=== PATIENT | male | born 1965 | race Caucasian/White ===

== ENCOUNTER 2017-01-25 22:51 | Emergency (ER) | payer OTHER ==
[~2017-01-25] VITALS: Ht 165.1 cm; Wt 90.7 kg
[~2017-01-25 22:51] MED LIST: CITALOPRAM20 MG PO; DOCUPRENE100 MG PO; FOLATE1 MG PO; MAPAP325 MG PO; METHOCARBAMOL750 M1 PO; PANTOPRAZOLE SO40 MG PO; ZOFRAN ODT4 MG SL
[2017-01-25 22:57] VITALS: BP 123/90
--- NOTE | 2017-01-26 00:58 | NUR ---
BIB WHEELCHAIR TO ER BED 6 FROM ER [facility]
--- NOTE | 2017-01-26 00:59 | NUR ---
BIBA FOR ETOH . PT DENIES N/V/D; SKIN IS PINK/WARM/DRY; AAOX4 WITH EVEN AND STEADY GAIT; LUNGS CLEAR BL; HR EVEN AND REGULAR; PT DENIES ANY FEVER, CP, SOB, OR COUGH AT THIS TIME; PATIENT STATES PAIN OF 0/10 AT THIS TIME; VSS; PATIENT POSITIONED FOR COMFORT; HOB ELEVATED; BEDRAILS UP X2; BED DOWN. ER MD MADE AWARE OF PT STATUS.
--- NOTE | 2017-01-26 01:25 | NUR ---
PT SLEEPING, NO C/O PAIN AT THIS TIME
--- NOTE | 2017-01-26 01:40 | NUR ---
DR MCNAMARA AT BEDSIDE
[2017-01-26] MEDS ORDERED: KETOROLAC 60 MG/2 ML VIAL IM ONE (01:45)
[2017-01-26 02:16] VITALS: BP 140/83
[2017-05-25] MEDS ORDERED: NORCO 325 MG-51 TAB PO (10:07)
== END 2017-01-26 02:16 | disposition home or self-care (01) ==
LOC: MED 22:51
DX: M25.561 Pain in right knee (principal); K21.9 Gastro-esophageal reflux disease without esophagitis; F10.10 Alcohol abuse, uncomplicated; Z98.890 Other specified postprocedural states
CPT/HCPCS: 96372; 99283; J1885

== ENCOUNTER 2017-05-24 15:33 | Observation (INO) | payer OTHER ==
[~2017-05-24] VITALS: Ht 162.6 cm; Wt 112.5 kg
[~2017-05-24 15:33] MED LIST changes: +ACET-7568 PO; -CITALOPRAM20 MG PO; +DOCU100T17 PO; -DOCUPRENE100 MG PO; -FOLATE1 MG PO; -MAPAP325 MG PO; +METH750T9 PO; -METHOCARBAMOL750 M1 PO; -PANTOPRAZOLE SO40 MG PO; -ZOFRAN ODT4 MG SL
--- NOTE | 2017-05-24 15:33 | NUR ---
Patient FANTA RODRIGUES, triaged by RN and transferred to ED lobby via wheelchair to wait for an available bed.
[2017-05-24 15:35] VITALS: BP 118/82
--- NOTE | 2017-05-24 17:56 | NUR ---
Patient transferred to bed 6 via wheelchair by tech. RN evaluating patient at bedside.
--- NOTE | 2017-05-24 18:10 | NUR ---
Patient being evaluated by Dr. Amaro at bedside.
[2017-05-24] MEDS ORDERED: MULTIVITAMIN-12 10 ML, THIAMINE 100 MG, MAGNESIUM SULFATE 50% 2,000 MG, FOLIC ACID 5 MG... IV ONE ×5 (18:11)
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
[2017-05-24] MEDS ORDERED: MAGNESIUM SULFATE 50% 1000 MG/2 ML VIAL IV ONE (18:28)
[2017-05-24] MEDS ORDERED: MULTIVITAMIN-12 10 ML VIAL IV ONE (18:28)
[2017-05-24] MEDS ORDERED: THIAMINE 200 MG/2 ML VIAL ONE (18:28)
[2017-05-24] MEDS ORDERED: FOLIC ACID 5 MG/ML SYR ONE (18:28)
[2017-05-24 18:35] LABS: BASOPHILS # (AUTO) 0.2 K/uL (0.00-0.22); BASOPHILS % (AUTO) 2.6 % (0.0-2.0); EOSINOPHILS # (AUTO) 0.2 K/uL (0-0.4); EOSINOPHILS % (AUTO) 1.9 % (0.0-4.0); LYMPHOCYTES # (AUTO) 2.2 K/uL (2.0-11.5); LYMPHOCYTES % (AUTO) 25.6 % (20.5-51.1); MEAN CORPUSCULAR HEMOGLOBIN 33 pg (27-31); MEAN CORPUSCULAR HGB CONC 33 g/dL (33-37); MEAN CORPUSCULAR VOLUME 100 fL (80-94); MONOCYTES # (AUTO) 0.6 K/uL (0.8-1.0); NEUTROPHILS # (AUTO) 5.3 K/uL (1.8-7.7); NEUTROPHILS % (AUTO) 62.9 % (42.2-75.2); PLATELET COUNT (AUTO) 129 K/uL (140-450); RED CELL DISTRIBUTION WIDTH 12.3 % (11.6-13.7); WHITE BLOOD COUNT (AUTO) 8.5 K/uL (4.8-10.8)
[2017-05-24 18:45] LABS: ANION GAP 17.7 (8-16); CARBON DIOXIDE 22.1 mmol/L (21-32); POTASSIUM 3.8 mmol/L (3.5-5.1)
[2017-05-24 18:57] LABS: ALBUMIN 3.8 g/dL (3.4-5.0); TOTAL BILIRUBIN 0.6 mg/dL (0.0-1.0)
--- NOTE | 2017-05-24 19:09 | NUR ---
Pt report given to Leonila PADGETT. Transfer of care at this time.
--- NOTE | 2017-05-24 19:13 | NUR ---
URINAL GIVEN AWARE NEED URINE, PT SAID OK I WILL TRY, IVF ONGOING WELL TOLERATED, NO SOB NOTED STILL COMPLAINING OF BACK PAIN.
--- NOTE | 2017-05-24 19:22 | NUR ---
RELAYED TO DR. DUNBAR RESULT OF URINE DIPSTICK AND MADE AWARE PT STILL COMPLAINING OF BACK PAIN,
--- NOTE | 2017-05-24 19:50 | NUR ---
INFORMED DR. MCKEON O2 SAT 88, PT JINNY MCKINLEY MD OK TO PUT O2 AT 2L/NC, O2 SAT WENT TO 94%
[2017-05-24 19:51] LABS: BARBITURATE, URINE NEG. ng/ml (NEG <=200); BENZODIAZEPINE, URINE NEG. ng/mL (NEG <=200); CANNABINOID, URINE POS. ng/mL (NEG <=50); COCAINE, URINE NEG. ng/mL (NEG <=300); OPIATE, URINE NEG. ng/mL (NEG <=2000); PHENCYCLIDINE SCREEN,URINE NEG. ng/mL (NEG <=25)
[2017-05-24] MEDS ORDERED: NACL 0.9% 1,000 ML IV ONE (20:05)
--- NOTE | 2017-05-24 20:18 | NUR ---
PT WENT TO XRAY VIA TORRI
--- NOTE | 2017-05-24 20:29 | NUR ---
TALKED TO DR. MCKEON BANANA BAG STILL ONGOING, SAID RUN THE BANANA BAG @ 500ML , PT STILL IN XRAY AT THIS TIME
--- NOTE | 2017-05-24 20:47 | NUR ---
Patient back from XRAY via [facility].
--- NOTE | 2017-05-24 20:47 | NUR ---
PT BACK FROM XRAY VIA TORRI PT VERBALIZED CAN I HAVE SOMETHING FOR PAIN, DR. MCKEON AWARE Addendum: 05/24/17 at 2049 by CJV PER MD HERRING TO HOLD BANANA BAG AND LET THE BOLUS NS RUN
[2017-05-24] MEDS ORDERED: KETOROLAC 30 MG/ML VIAL IVP ONE (21:00)
--- NOTE | 2017-05-24 21:10 | NUR ---
DR. MCKEON AT BEDSIDE
[2017-05-24] MEDS ORDERED: HYDROmorphone 1 MG/ML AMP IVP ONE (21:15)
[2017-05-24] MEDS ORDERED: NACL 0.9% 1,000 ML IV SCH (21:24)
--- NOTE | 2017-05-24 21:24 | NUR ---
IV FLUIDS FINISHED, WILL CONTINUE TO MONITOR. CALL LIGHT WITHIN REACH. SAFETY CHECKS IN PLACE.
[2017-05-24] MEDS ORDERED: HYDROcodone/APAP 5/325 MG 1 TAB TAB PO PRN (21:25)
[2017-05-24] MEDS ORDERED: ONDANSETRON 4 MG/2 ML VIAL IVP PRN (21:25)
[2017-05-24] MEDS ORDERED: ALBUTEROL 0.083% 2.5 MG/3 ML NEBU IH PRN (21:25)
[2017-05-24] MEDS ORDERED: MIDAZOLAM 2 MG/2 ML VIAL IVP ONE (21:35)
[2017-05-24] MEDS ORDERED: DIAZEPAM 5 MG TAB PO ONE (21:40)
--- NOTE | 2017-05-24 21:42 | NUR ---
CALL PLACE TO TELE FOR REPORT SPOKE TO GABRIELA, WILL CALL ME BACK
[2017-05-24] MEDS ORDERED: DIAZEPAM 5 MG TAB ONE (21:48)
--- NOTE | 2017-05-24 22:07 | NUR ---
Pt report given to GABRIELA. Transfer of care at this time.
--- NOTE | 2017-05-24 22:10 | NUR ---
PT CAME FROM ER VIA GURNEY, TRANSPORTED TO BED RIGHT NEXT TO THE GURNEY. PT IS AOX4, ABLE TO MAKE NEEDS KNOWN. HAS A LEFT HAND 20 G WITH A MULTIVITAMIN INFUSED NACL RUNNING AT 250 ML/HR, INTACT AND PATENT. SKIN IS INTACT. WITH AN O2 VIA NC RUNNING AT 2 L, WELL TOLERATED BY PATIENT. VITAL SIGNS TAKEN, AND IS STABLE. ORIENTED PT TO THE UNIT, NEEDS REINFORCEMENT. WILL CONTINUE TO MONITOR. ALL NEEDS ATTENDED. CALL LIGHT WITHIN REACH. SAFETY CHECKS IN PLACE.
--- NOTE | 2017-05-24 22:11 | NUR ---
Pt report given to GABRIELA. Transfer of care at this time. PT AAO, NO DISTRESS NOTED. CLAIMED GOODBYE EVERYBODY
[2017-05-24 22:12] VITALS: BP 132/76
--- NOTE | 2017-05-24 22:30 | NUR ---
PT WAS ABLE TO ANSWER THE ADMISSION QUESTIONS WHEN ASKED.
[2017-05-24] MEDS ORDERED: LORazepam 2 MG/ML VIAL IVP PRN (23:10)
--- NOTE | 2017-05-24 23:15 | NUR ---
PAGED DR. SOUZA RELATED, AWAITING CALL BACK.
--- NOTE | 2017-05-24 23:20 | NUR ---
DR. SOUZA CALLED BACK, INFORMED HIM TO VOICE CONCERN ABOUT WORRY ABOUT PT ALCOHOL WITHDRAWAL AND THE POSSIBILITY OF SEIZURE. DR. SOUZA GAVE AN ORDER OF ATIVAN 2 MG IV Q1H FOR SEIZURE PRN AND LIBIRUM 10 MG TID PO TO START RIGHT NOW. WILL CARRY OUT ORDER.
[2017-05-25] VITALS: BP 126/77
--- NOTE | 2017-05-25 01:30 | NUR ---
MULTIVITAMIN INFUSED WITH NORMAL SALINE FINISHED. HANGED NORMAL SALINE RUNNING AT 75 ML/HR.
--- NOTE | 2017-05-25 02:04 | NUR ---
MADE ROUNDS, PT IS SEEN ASLEEP. NO S/S OF DISTRESS. NO COMPLAINTS OF PAIN. WILL CONTINUE TO MONITOR. ALL NEEDS ATTENDED. CALL LIGHT WITHIN REACH. SAFETY CHECKS IN PLACE.
--- NOTE | 2017-05-25 04:00 | NUR ---
VS STABLE, COMPLAINED OF PAIN. WILL MEDICATE WITH MORPHINE. WILL CONTINUE TO MONITOR FOR ANY CHANGES. Addendum: 05/25/17 at 0516 by Jojo Magdaleno RN WRONG TIME
[2017-05-25 04:24] VITALS: BP 125/78
[2017-05-25] MEDS: MORPHINE SULFATE 4 MG/ML SYR IVP PRN ×2 (04:28→08:25)
--- NOTE | 2017-05-25 04:30 | NUR ---
PT SAID HE COMPLAINED OF PAIN, CHECKED VITALS, ADMINISTERED MORPHINE. WAS ABLE TO AMBULATE TO THE RESTROOM.
--- NOTE | 2017-05-25 05:00 | NUR ---
CHECKED ON THE PATIENT TO SEE IF THE PAIN HAS SUBSIDED. SAID THAT THE MORPHINE HELPED. WILL CONTINUE TO MONITOR. ALL NEEDS ATTENDED. CALL LIGHT WITHIN REACH. SAFETY CHECKS IN PLACE.
--- NOTE | 2017-05-25 06:21 | NUR ---
PATIENT WAS COMPLAINING OF SHAKINESS, GAVE ATIVAN PRN TO PREVENT SEIZURE ACTIVITY.
[2017-05-25 06:27] LABS: BASOPHILS % (AUTO) 0.7 % (0.0-2.0); EOSINOPHILS # (AUTO) 0.1 K/uL (0-0.4); EOSINOPHILS % (AUTO) 2.1 % (0.0-4.0); HEMATOCRIT 38.9 % (36-52); HEMOGLOBIN 13.2 g/dL (12.0-18.0); LYMPHOCYTES # (AUTO) 0.8 K/uL (2.0-11.5); LYMPHOCYTES % (AUTO) 16.2 % (20.5-51.1); MEAN CORPUSCULAR HEMOGLOBIN 34 pg (27-31); MEAN CORPUSCULAR HGB CONC 34 g/dL (33-37); MEAN CORPUSCULAR VOLUME 98 fL (80-94); MONOCYTES # (AUTO) 0.4 K/uL (0.8-1.0); MONOCYTES % (AUTO) 8.5 % (1.7-9.3); NEUTROPHILS # (AUTO) 3.9 K/uL (1.8-7.7); NEUTROPHILS % (AUTO) 72.5 % (42.2-75.2); RED BLOOD CELL COUNT(AUTO) 3.95 MIL/uL (4.20-6.10); RED CELL DISTRIBUTION WIDTH 12.2 % (11.6-13.7)
[2017-05-25 06:56] LABS: MAGNESIUM 2.3 mg/dL (1.8-2.4); PHOSPHORUS 2.9 mg/dL (2.5-4.9)
[2017-05-25 07:12] LABS: ANION GAP 11.5 (8-16); CARBON DIOXIDE 25.9 mmol/L (21-32); CREATININE 0.8 mg/dL (0.7-1.3); POTASSIUM 4.4 mmol/L (3.5-5.1)
--- NOTE | 2017-05-25 07:26 | NUR ---
ENDORSED TO AM SHIFT NURSE FOR CONTINUITY OF CARE, WILL CONTINUE TO MONITOR FOR ANY CHANGES.
[2017-05-25 07:29] LABS: PLATELET COUNT (AUTO) 100 K/uL (140-450); WHITE BLOOD COUNT (AUTO) 5.2 K/uL (4.8-10.8)
--- NOTE | 2017-05-25 07:30 | NUR ---
REPORT RECEIVED FROM NUT TAPPER, CARE ASSUMED AT THIS TIME, PT AWAKE ALERT, RESTING COMFORTABLY, RESP EVEN UNLABORED IN NAD, INITIAL ASSESSMENT DONE, PT REQUESTS PAIN MED FOR RIGHT LEG PAIN AND BACK PAIN, WILL MEDICATE WHEN PRN DUE, PLAN OF CARE DISCUSSED, DENIES ANY IMMEDIATE NEEDS, CALL SARAVIA WITHIN REACH, WILL CONTINUE TO TO MONITOR.
[2017-05-25 08:00] VITALS: BP 150/85
[2017-05-25] MEDS ORDERED: HYDROcodone/APAP 5/325 MG 1 TAB TAB PO PRN ×2 (10:05)
[2017-05-25] MEDS ORDERED: ACET-2869 PO (10:07)
--- NOTE | 2017-05-25 11:57 | NUR ---
PT TAKEN TO RADIOLOGY FOR XRAY IN WHEELCHAIR
--- NOTE | 2017-05-25 14:40 | NUR ---
DISCHARGE INSTRUCTION AND RX GIVEN AND EXPLAINED TO PT, PT VERBALIZED FULL UNDERSTANDING, PT UP WALKING AROUND WITH STEADY GAIT, IV DC'D, CATH TIP INTACT, BLEEDING CONTROLLED, DC HOME NOW WITH PARENTS. ESCORTED OUT TO FRONT LOBBY.
== END 2017-05-25 14:40 | disposition home or self-care (01) ==
LOC: MED 15:33 → MTU 21:27
PROVIDERS: ADMIT Hospitalist; ATTEND Hospitalist
DX: M54.5 Low back pain (principal); G89.29 Other chronic pain; F10.129 Alcohol abuse with intoxication, unspecified; K21.9 Gastro-esophageal reflux disease without esophagitis; M79.604 Pain in right leg
CPT/HCPCS: 36415; 71010; 72110; 73502; 73562; 80048; 80053; 80305; 83735; 84100; 85025; 85379; 87081; 93005; 94640; 94760; 96365; 96366; 96375; 96376; 97116; 97140; 97163; 99285; A9153; G0378; G0482; J1170; J1885; J2060; J2270; J3411; J3475; J3490; J7030; J7613; Q0092

== ENCOUNTER 2017-09-16 18:25 | Inpatient (IN) | payer OTHER ==
[~2017-09-16] VITALS: Ht 165.1 cm; Wt 86.2 kg
[~2017-09-16 18:25] MED LIST changes: +ACET-2869 PO; -ACET-7568 PO; -DOCU100T17 PO; -METH750T9 PO
[2017-09-16 18:37] VITALS: BP 132/87
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
--- NOTE | 2017-09-16 19:19 | NUR ---
Pt report given to MAKAYLA; RN INTENSIVE CARE UNIT. Transfer of care at this time.
--- NOTE | 2017-09-16 19:30 | NUR ---
ASSUMED CARE OF PT. pT PACING IN LOVE. SHOUTING HE WANTS TO KILL HIMSELF. HE JUST GOT OUT OF [facility] AND ITS MY BITHDAY. I ESCORTED PT BACK TO HIS BED AND PUT RAILS UP. SEE OBSERVATION RECORD..
--- NOTE | 2017-09-16 19:50 | NUR ---
Patient being evaluated by Dr. Martino at bedside.
[2017-09-16] MEDS ORDERED: diphenhydrAMINE 50 MG/ML VIAL IM ONE (20:10)
[2017-09-16] MEDS ORDERED: LORazepam 2 MG/ML VIAL IM ONE (20:10)
--- NOTE | 2017-09-16 20:20 | NUR ---
Security at bedside for belongings check.
[2017-09-16 20:35] LABS: BASOPHILS # (AUTO) 0.1 K/uL (0.00-0.22); BASOPHILS % (AUTO) 2.1 % (0.0-2.0); EOSINOPHILS # (AUTO) 0.1 K/uL (0-0.4); EOSINOPHILS % (AUTO) 1.5 % (0.0-4.0); HEMATOCRIT 40.3 % (36-52); HEMOGLOBIN 13.7 g/dL (12.0-18.0); LYMPHOCYTES # (AUTO) 1.1 K/uL (2.0-11.5); LYMPHOCYTES % (AUTO) 20.8 % (20.5-51.1); MEAN CORPUSCULAR HEMOGLOBIN 34 pg (27-31); MEAN CORPUSCULAR HGB CONC 34 g/dL (33-37); MEAN CORPUSCULAR VOLUME 98 fL (80-94); MONOCYTES # (AUTO) 0.4 K/uL (0.8-1.0); MONOCYTES % (AUTO) 8.1 % (1.7-9.3); NEUTROPHILS # (AUTO) 3.7 K/uL (1.8-7.7); NEUTROPHILS % (AUTO) 67.5 % (42.2-75.2); PLATELET COUNT (AUTO) 84 K/uL (140-450); WHITE BLOOD COUNT (AUTO) 5.4 K/uL (4.8-10.8)
[2017-09-16 20:47] LABS: ALBUMIN 3.9 g/dL (3.4-5.0); ANION GAP 19.8 (8-16); ASPARTATE AMINOTRANSFERASE 128 U/L (15-37); CARBON DIOXIDE 23.8 mmol/L (21-32); CHLORIDE 101 mmol/L (98-107); CREATININE 0.8 mg/dL (0.7-1.3); GFR ARICAN-AMERICAN 131 mL/min (>90); GLUCOSE 239 mg/dL (74-106); POTASSIUM 3.6 mmol/L (3.5-5.1); SODIUM SERUM 141 mmol/L (136-145); UREA NITROGEN, BLOOD 6 mg/dL (7-18)
[2017-09-16 20:49] LABS: ACETAMINOPHEN < 0.5 ug/ml (10-30); SALICYLATE < 2.8 mg/dL (2.8-20.0)
--- NOTE | 2017-09-16 21:00 | NUR ---
PT SLEEPING. NO DISTRESS NOTED. VS WNL.
--- NOTE | 2017-09-16 22:45 | NUR ---
PT STANDING AT BEDSIDE USING URINAL.. CLEAR DARK YELLOW URINE 500ML
[2017-09-16 22:56] LABS: APPEARANCE,URINE CLEAR (CLEAR); BILIRUBIN,URINE NEGATIVE (NEGATIVE); BLOOD, URINE TRACE-L (NEGATIVE); COLOR,URINE YELLOW (YELLOW); LEUKOCYTE ESTERASE ,URINE NEGATIVE (NEGATIVE); NITRITE, URINE NEGATIVE (NEGATIVE); UGLUCOSE NEGATIVE (NEGATIVE)
[2017-09-16 23:03] LABS: BARBITURATE, URINE NEG. ng/ml (NEG <=200); BENZODIAZEPINE, URINE NEG. ng/mL (NEG <=200); CANNABINOID, URINE POS. ng/mL (NEG <=50); COCAINE, URINE NEG. ng/mL (NEG <=300); OPIATE, URINE NEG. ng/mL (NEG <=2000); PHENCYCLIDINE SCREEN,URINE NEG. ng/mL (NEG <=25)
[2017-09-16 23:18] LABS: RBC,URINE NONE SEEN /HPF (0-5)
[2017-09-16 23:19] LABS: WBC,URINE 0-5 (RARE) /HPF (0-5)
--- NOTE | 2017-09-17 | NUR ---
PT REMAINS ASLEEP. NO DISTRESS NOTED. SEE BEHAVIOR NOTE.
--- NOTE | 2017-09-17 03:30 | NUR ---
PT AWAKE TALKING/INTERACTING APPROPRIATLY WITH STAFF. NO DISTRESS NOTED. SEE BEHAVIORAL FLOWSHEET.
--- NOTE | 2017-09-17 04:37 | NUR ---
Lab at bedside for blood draw.
--- NOTE | 2017-09-17 05:30 | NUR ---
PT STANDING AT BEDSIDE TO VOID. CLEAR DARK YELLOW URINE 400ML.
--- NOTE | 2017-09-17 06:30 | NUR ---
sTANDING AT BEDSIDE USING URINAL. VOIDED 500ML CLDARK YELLOW URINE
--- NOTE | 2017-09-17 07:15 | NUR ---
REPORT GIVEN TO RHONDA PADGETT
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
[2017-09-17] MEDS ORDERED: IBUPROFEN 800 MG TAB PO ONE (07:25)
[2017-09-17] MEDS ORDERED: ONDANSETRON 4 MG TAB PO ONE (07:25)
--- NOTE | 2017-09-17 07:38 | NUR ---
PT STATED " PLEASE CALL MY MOM [phone] ; TELL HER I'M IN HOSPITAL"."
--- NOTE | 2017-09-17 07:50 | NUR ---
PT ATE 80% OF BREAKFAST . DENIES N/V AT THIS TIME.
[2017-09-17] MEDS ORDERED: LORazepam 2 MG/ML VIAL IVP PRN (08:10)
[2017-09-17] MEDS ORDERED: ACETAMINOPHEN 325 MG TAB PO PRN (08:10)
[2017-09-17] MEDS ORDERED: ONDANSETRON 4 MG/2 ML VIAL IVP PRN (08:10)
[2017-09-17] MEDS ORDERED: MULTIVITAMIN-12 10 ML, THIAMINE 100 MG, MAGNESIUM SULFATE 50% 2,000 MG, FOLIC ACID 5 MG... IV SCH ×5 (08:10)
[2017-09-17] MEDS ORDERED: MORPHINE SULFATE 2 MG/ML SYR IVP PRN (08:10)
--- NOTE | 2017-09-17 08:10 | NUR ---
Notified Dr. Loving's group of requested consultation.
--- NOTE | 2017-09-17 08:48 | NUR ---
Note undone in EDM - 09/17/17 at 0923 by [email or web address] Patient appears to be resting comfortably in bed. BP 174/100, P 105/MINS, DENIES HEADACHE OR DIZINESS AT THIS TIME. MADE AWARE Respirations even and unlabored. DENIES TTO HURT HIMSELF OR OTHER AT THIS TIME. PT'S CALM &COORPERTAED .
--- NOTE | 2017-09-17 09:23 | NUR ---
Patient appears to be resting comfortably in bed. BP 174/100, P 105/MINS, DENIES HEADACHE OR DIZINESS AT THIS TIME. MD MADE AWARE Respirations even and unlabored. DENIES TO HURT HIMSELF OR OTHERS AT THIS TIME. PT'S CALM &COORPERTAED .
--- NOTE | 2017-09-17 09:56 | NUR ---
GAVE REPORT TO GINO;LORIN
[2017-09-17 09:57] VITALS: BP 174/100
--- NOTE | 2017-09-17 10:00 | NUR ---
PT ARRIVED TO UNIT VIA WHEELCHAIR ACCOMPANIED BY RN. PT AMBULATED TO BED WITH STEADY GAIT. MRSA SWAB DONE. 1:1 SITTER AT BEDSIDE.
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
[2017-09-17] MEDS ORDERED: INSULIN LISPRO SLIDING SCALE 100 UNITS/ML VIAL SUBQ PRN (13:50)
[2017-09-17] MEDS ORDERED: BLOOD GLUCOSE MONITORING 1 DEV DEV FS SCH (16:30)
--- NOTE | 2017-09-17 16:35 | NUR ---
PT D/C'D TO GO HOME. GAVE D/C INSTRUCTIONS, FORMS, LABS, PSYCH AND ALCOHOL ABUSE REFERRALS. PT SIGNED FORMS AND VERBALIZED UNDERSTANDING. REMOVED IV CATHETER FROM LEFT HAND 22G. IV CATHETER TIP INTACT. APPLIED DRESSING AND PRESSURE TO SITE. NO BLEEDING NOTED. REMOVED ID BAND. SECURITY DELIVERED PT'S BELONGINGS. CHANGED IN OWN CLOTHES AND LEFT WITH ALL PERSONAL BELONGINGS. BUS PASS PROVIDED. PT LEFT UNIT VIA AMBULATION ACCOMPANIED BY RN. PT LEFT IN STABLE CONDITION.
[2017-09-17] MEDS ORDERED: FAMOTIDINE 20 MG TAB PO SCH (21:00)
[2017-09-17] MEDS ORDERED: METOPROLOL 25 MG TAB PO SCH (21:00)
--- NOTE | 2017-09-18 08:49 | NUR ---
RETRO ER REPORT, H&P, CONSULT AND DISCHARGE SUMMARY FAXED TO [facility] [phone] PHONE ARTURO [phone]
== END 2017-09-17 16:35 | disposition home or self-care (01) | DRG 775 ==
LOC: MED 18:25 → MTU 09-17 08:08
PROVIDERS: ADMIT Hospitalist; ATTEND Hospitalist
DX: F10.229 Alcohol dependence with intoxication, unspecified (principal); R45.851 Suicidal ideations; F33.2 Major depressive disorder, recurrent severe without psychotic features; R56.9 Unspecified convulsions; E11.65 Type 2 diabetes mellitus with hyperglycemia; F17.200 Nicotine dependence, unspecified, uncomplicated; K21.9 Gastro-esophageal reflux disease without esophagitis; Y90.8 Blood alcohol level of 240 mg/100 ml or more; F12.10 Cannabis abuse, uncomplicated; F41.1 Generalized anxiety disorder; Z59.0 Homelessness
CPT/HCPCS: 36415; 80053; 80305; 81001; 83036; 85025; 87081; 96372; 99285; A9153; G0480; G0482; J1200; J1815; J2060; J2270; J3411; J3475; J3490; J7030; Q0162

== ENCOUNTER 2017-09-20 15:22 | Emergency (ER) | payer OTHER ==
[~2017-09-20] VITALS: Ht 170.2 cm; Wt 99.8 kg
--- NOTE | 2017-09-20 15:22 | NUR ---
Patient was BIBA BLS at this time.
--- NOTE | 2017-09-20 15:35 | NUR ---
Patient taken to bed 11 via gurney per EMS.
[2017-09-20 15:38] VITALS: BP 130/81
--- NOTE | 2017-09-20 16:00 | NUR ---
ASSUMED PATIENT CARE, CONCUR WITH TRIAGE ASSESSMENT. BEDDED IN ER 11, PATIENT IS INTOXICATED, SEEN HERE MULTIPLE TIMES FOR ETOH ABUSE.
[2017-09-20] MEDS: MULTIVITAMIN-12 10 ML, THIAMINE 100 MG, MAGNESIUM SULFATE 50% 2,000 MG, FOLIC ACID 5 MG... IV ONE ×5 (16:53)
--- NOTE | 2017-09-20 17:45 | NUR ---
PATIENT IS ALERT, AWAKE, ORIENTED, STEADY ON FEET WITH WALKER.
--- NOTE | 2017-09-20 18:00 | NUR ---
MD AT BEDSIDE REEVALUATING PATIENT.
--- NOTE | 2017-09-20 18:27 | NUR ---
DISPO AND MEDICAL DECISION MAKING DC HOME WITH INSTRUCTIONS, COUNSELED ON ALCOHOL ABUSE.
[2017-09-20 18:28] VITALS: BP 144/87
== END 2017-09-20 18:27 | disposition home or self-care (01) ==
LOC: MED 15:22
DX: F10.129 Alcohol abuse with intoxication, unspecified (principal); K21.9 Gastro-esophageal reflux disease without esophagitis; F12.10 Cannabis abuse, uncomplicated
CPT/HCPCS: 82948; 96365; 96366; 99285; A9153; J3411; J3475; J3490; J7030

== ENCOUNTER 2017-09-23 18:16 | Emergency (ER) | payer OTHER ==
[~2017-09-23] VITALS: Ht 167.6 cm; Wt 81.6 kg
[2017-09-23 18:18] VITALS: BP 153/98
== END 2017-09-23 19:34 | disposition left against medical advice (07) ==
LOC: MED 18:16
DX: M79.1 Myalgia (principal); Z53.21 Procedure and treatment not carried out due to patient leaving prior to being seen by health care provider

== ENCOUNTER 2017-09-25 18:27 | Emergency (ER) | payer OTHER ==
[~2017-09-25] VITALS: Ht 165.1 cm; Wt 90.7 kg
--- NOTE | 2017-09-25 18:27 | NUR ---
Patient was BIBA and taken to bed 11 via gurney per EMS.
[2017-09-25 18:38] VITALS: BP 138/76
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
[2017-09-25] MEDS ORDERED: NACL 0.9% 2,000 ML IV ONE (18:45)
--- NOTE | 2017-09-25 19:21 | NUR ---
GOT SCOTT FROM LORIN CHARLES. PT. RESTING IN BED, NO S/SX OF DISTRESS AT THIS TIME.
[2017-09-25 21:11] VITALS: BP 116/97
--- NOTE | 2017-09-25 21:12 | NUR ---
Patient discharged with v/s stable. Written and verbal after care instructions given and explained. Patient verbalized understanding. Ambulatory with steady gait. All questions addressed prior to discharge. Advised to follow up with PMD.
== END 2017-09-25 21:12 | disposition home or self-care (01) ==
LOC: MED 18:27
DX: F10.129 Alcohol abuse with intoxication, unspecified (principal); K74.60 Unspecified cirrhosis of liver; K21.9 Gastro-esophageal reflux disease without esophagitis; Z79.899 Other long term (current) drug therapy
CPT/HCPCS: 96360; 96361; 99285; J7030

== ENCOUNTER 2017-09-26 13:33 | Emergency (ER) | payer OTHER ==
[~2017-09-26] VITALS: Ht 165.1 cm; Wt 90.7 kg
--- NOTE | 2017-09-26 13:33 | NUR ---
Patient was BIBA at this time.
--- NOTE | 2017-09-26 13:39 | NUR ---
Patient taken to bed 04 via gurney per EMS.
[2017-09-26 13:40] VITALS: BP 144/92
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
[2017-09-26] MEDS ORDERED: diphenhydrAMINE 50 MG CAP PO ONE (14:00)
[2017-09-26] MEDS ORDERED: HALOPERIDOL IM 5 MG/ML VIAL IM ONE (14:00)
--- NOTE | 2017-09-26 14:45 | NUR ---
Pt back from CT
--- NOTE | 2017-09-26 15:28 | NUR ---
Pt quiet and resting comfortably at this time. VSS. Both side rails up. No distress noted.
--- NOTE | 2017-09-26 15:56 | NUR ---
Patient appears to be resting comfortably in bed. VSS.
--- NOTE | 2017-09-26 16:21 | NUR ---
Attemped to call patient's mother to shrimp picker and no answer. Will follow up.
[2017-09-26 17:25] VITALS: BP 115/78
--- NOTE | 2017-09-26 17:25 | NUR ---
Patient discharged with v/s stable. Written and verbal after care instructions given and explained. Patient verbalized understanding. Ambulatory with steady gait. Bus pass provided for transportation. All questions addressed prior to discharge. Advised to follow up with PMD.
== END 2017-09-26 17:25 | disposition home or self-care (01) ==
LOC: MED 13:33
DX: F10.129 Alcohol abuse with intoxication, unspecified (principal); R51 Headache; K21.9 Gastro-esophageal reflux disease without esophagitis; Z79.899 Other long term (current) drug therapy
CPT/HCPCS: 70486; 96372; 99284; J1630; Q0163

== ENCOUNTER 2017-09-29 10:49 | Emergency (ER) | payer OTHER ==
[~2017-09-29] VITALS: Ht 170.2 cm; Wt 99.8 kg
[2017-09-29 10:51] VITALS: BP 155/93
[2017-09-29] MEDS ORDERED: LIDOCAINE 1% ***ER ONLY *** 10 MG/ML VIAL INJ ONE (11:05)
[2017-09-29] MEDS ORDERED: KETOROLAC 60 MG/2 ML VIAL IM ONE (12:20)
[2017-09-29 12:58] VITALS: BP 158/95
== END 2017-09-29 12:45 | disposition home or self-care (01) ==
LOC: MED 10:49
DX: S01.512A Laceration without foreign body of oral cavity, initial encounter (principal); S00.83XA Contusion of other part of head, initial encounter; R03.0 Elevated blood-pressure reading, without diagnosis of hypertension; K21.9 Gastro-esophageal reflux disease without esophagitis; Z79.899 Other long term (current) drug therapy; Y04.2XXA Assault by strike against or bumped into by another person, initial encounter; Y93.89 Activity, other specified; Y92.89 Other specified places as the place of occurrence of the external cause; Y99.8 Other external cause status
CPT/HCPCS: 12011; 70150; 90471; 90715; 96372; 99284; J1885; J2001

== ENCOUNTER 2017-10-03 08:05 | Emergency (ER) | payer OTHER ==
[~2017-10-03] VITALS: Ht 165.1 cm; Wt 88.5 kg
[2017-10-03 08:07] VITALS: BP 159/91
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
--- NOTE | 2017-10-03 08:23 | NUR ---
DR MCNAMARA AT BEDSIDE.
[2017-10-03] MEDS ORDERED: KETOROLAC 60 MG/2 ML VIAL IM ONE (08:30)
[2017-10-03 08:41] LABS: BASOPHILS % (AUTO) 0.8 % (0.0-2.0); EOSINOPHILS # (AUTO) 0.1 K/uL (0-0.4); EOSINOPHILS % (AUTO) 2.2 % (0.0-4.0); HEMATOCRIT 39.9 % (36-52); HEMOGLOBIN 13.4 g/dL (12.0-18.0); LYMPHOCYTES # (AUTO) 0.9 K/uL (2.0-11.5); LYMPHOCYTES % (AUTO) 17.4 % (20.5-51.1); MEAN CORPUSCULAR HEMOGLOBIN 34 pg (27-31); MEAN CORPUSCULAR HGB CONC 34 g/dL (33-37); MEAN CORPUSCULAR VOLUME 100 fL (80-94); MONOCYTES # (AUTO) 0.3 K/uL (0.8-1.0); MONOCYTES % (AUTO) 5.5 % (1.7-9.3); NEUTROPHILS # (AUTO) 3.8 K/uL (1.8-7.7); NEUTROPHILS % (AUTO) 74.1 % (42.2-75.2); PLATELET COUNT (AUTO) 86 K/uL (140-450); RED BLOOD CELL COUNT(AUTO) 3.98 MIL/uL (4.20-6.10); RED CELL DISTRIBUTION WIDTH 13.9 % (11.6-13.7); WHITE BLOOD COUNT (AUTO) 5.1 K/uL (4.8-10.8)
--- NOTE | 2017-10-03 08:45 | NUR ---
WENT TO CT SCAN ACCOMPANIED BY TECH.
[2017-10-03 08:54] LABS: ALBUMIN 3.8 g/dL (3.4-5.0); ANION GAP 10.2 (8-16); CARBON DIOXIDE 25.7 mmol/L (21-32); CREATININE 0.8 mg/dL (0.7-1.3); POTASSIUM 3.9 mmol/L (3.5-5.1); TOTAL BILIRUBIN 1.6 mg/dL (0.0-1.0)
--- NOTE | 2017-10-03 08:57 | NUR ---
BACK FROM CT SCAN ACCOMPANIED BY TREVOR.
[2017-10-03 09:00] LABS: PROTHROMBIN TIME 12.1 secs (10.8-13.4)
--- NOTE | 2017-10-03 09:50 | NUR ---
Patient discharged with v/s stable. Written and verbal after care instructions given and explained. Patient alert, oriented and verbalized understanding of instructions. Ambulatory with steady gait. All questions addressed prior to discharge. ID band removed. Patient advised to follow up with PMD. Rx of MOTRIN,BENADRYL AND NORCO given. Patient educated on indication of medication including possible reaction and side effects. Opportunity to ask questions provided and answered.
[2017-10-03 09:51] VITALS: BP 125/79
== END 2017-10-03 09:50 | disposition home or self-care (01) ==
LOC: MED 08:05
DX: S00.83XA Contusion of other part of head, initial encounter (principal); K21.9 Gastro-esophageal reflux disease without esophagitis; F17.200 Nicotine dependence, unspecified, uncomplicated; Y08.89XA Assault by other specified means, initial encounter; Y93.9 Activity, unspecified; Y92.89 Other specified places as the place of occurrence of the external cause; Y99.8 Other external cause status
CPT/HCPCS: 36415; 70486; 80053; 85025; 85610; 85730; 96372; 99285; J1885

== ENCOUNTER 2017-10-14 06:55 | Emergency (ER) | payer OTHER ==
[~2017-10-14] VITALS: Ht 165.1 cm; Wt 96.2 kg
[2017-10-14 06:59] VITALS: BP 169/93
--- NOTE | 2017-10-14 07:12 | NUR ---
PT AMBULATED TO BED 2 WITH WALKER.
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
--- NOTE | 2017-10-14 07:32 | NUR ---
Dr. Zeng at bedside for suture removal.
[2017-10-14] MEDS ORDERED: KETOROLAC 60 MG/2 ML VIAL IM ONE (07:35)
[2017-10-14 07:56] VITALS: BP 153/107
--- NOTE | 2017-10-14 07:56 | NUR ---
Patient discharged with v/s stable. Written and verbal after care instructions given and explained. Patient alert, oriented and verbalized understanding of instructions. Ambulatory with steady gait with use of walker. All questions addressed prior to discharge. ID band removed. Patient advised to follow up with PMD. Rx of Motrin 800mg and Ambien 5mg given. Bus pass provided and given to patient. Patient educated on indication of medication including possible reaction and side effects. Opportunity to ask questions provided and answered.
== END 2017-10-14 07:56 | disposition home or self-care (01) ==
LOC: MED 06:55
DX: S01.512D Laceration without foreign body of oral cavity, subsequent encounter (principal); M54.5 Low back pain; M25.572 Pain in left ankle and joints of left foot; G47.00 Insomnia, unspecified; R03.0 Elevated blood-pressure reading, without diagnosis of hypertension; K21.9 Gastro-esophageal reflux disease without esophagitis; Z79.899 Other long term (current) drug therapy; Y08.89XD Assault by other specified means, subsequent encounter
CPT/HCPCS: 96372; 99283; J1885

== ENCOUNTER 2018-01-19 15:20 | Emergency (ER) | payer OTHER ==
[~2018-01-19] VITALS: Ht 162.6 cm; Wt 98.0 kg
[2018-01-19 15:32] VITALS: BP 154/91
--- NOTE | 2018-01-19 15:40 | NUR ---
pt sent to lobby to wait for a bed
--- NOTE | 2018-01-19 16:48 | NUR ---
PATIENT LEFT WITHOUT BEING SEEN BY DR. SALDANA. NO FURTHER CARE PROVIDED FOR PATIENT.
== END 2018-01-19 16:47 | disposition left against medical advice (07) ==
LOC: MED 15:20
DX: M54.9 Dorsalgia, unspecified (principal); Z53.21 Procedure and treatment not carried out due to patient leaving prior to being seen by health care provider

== ENCOUNTER 2018-01-21 15:05 | Emergency (ER) | payer OTHER ==
[~2018-01-21] VITALS: Ht 172.7 cm; Wt 99.8 kg
[2018-01-21 15:07] VITALS: BP 161/105
--- NOTE | 2018-01-21 15:12 | NUR ---
PATIENT PRESENTS TO ED WITH BACK PLAIN AND ETOH . PT STATES " MY BACK HURTS , AND AND I FEEL LIKE THIS IS IT". . DENIES N/V/D; SKIN IS PINK/WARM/DRY; AAOX4; LUNGS CLEAR BL; HR EVEN AND REGULAR; PT DENIES ANY FEVER, CP, SOB, OR COUGH AT THIS TIME; PATIENT STATES PAIN OF 4/10 AT THIS TIME IN BACK; VSS; PATIENT POSITIONED FOR COMFORT; HOB ELEVATED; BEDRAILS UP X2; BED DOWN. ER MD SANTOS MADE AWARE OF PT STATUS.
[2018-01-21] MEDS ORDERED: KETOROLAC 30 MG/ML VIAL IVP ONE (15:25)
[2018-01-21] MEDS ORDERED: NACL 0.9% 1,000 ML IV ONE (15:25)
[2018-01-21 17:10] VITALS: BP 144/88
--- NOTE | 2018-01-21 17:10 | NUR ---
Patient discharged with v/s stable. Written and verbal after care instructions given and explained. Patient verbalized understanding. Ambulatory with steady gait. All questions addressed prior to discharge. Advised to follow up with PMD. BUS PASS PROVIDED BY CHARGE NURSE LORIN MONSIVAIS.
== END 2018-01-21 17:10 | disposition home or self-care (01) ==
LOC: MED 15:05
DX: F10.129 Alcohol abuse with intoxication, unspecified (principal); G89.29 Other chronic pain; M54.9 Dorsalgia, unspecified; Y90.9 Presence of alcohol in blood, level not specified; K21.9 Gastro-esophageal reflux disease without esophagitis
CPT/HCPCS: 82948; 96361; 96374; 99284; J1885

== ENCOUNTER 2018-01-23 17:49 | Emergency (ER) | payer OTHER ==
[~2018-01-23] VITALS: Ht 177.8 cm; Wt 86.2 kg
[2018-01-23 17:51] VITALS: BP 152/93
--- NOTE | 2018-01-23 17:55 | NUR ---
PT BIBA FOR ETOH
[2018-01-23 18:00] VITALS: BP 152/93
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
[2018-01-23] MEDS ORDERED: KETOROLAC 60 MG/2 ML VIAL IM ONE (18:45)
[2018-01-23] MEDS ORDERED: ACETAMINOPHEN EXTRA STRENGTH 500 MG TAB PO ONE (18:45)
--- NOTE | 2018-01-23 19:10 | NUR ---
RECEIVED REPORT FROM KELLI FERNANDO
--- NOTE | 2018-01-23 19:18 | NUR ---
REPORT GIVEN TO LORIN WOODSON FOR CONTINUATION OF CARE
--- NOTE | 2018-01-23 19:22 | NUR ---
PATIENT ELOPED FROM FACILITY. DISCHARGE INSTRUCTIONS NOT GIVEN TO PATIENT. DR. HARTMAN NOTIFIED.
== END 2018-01-23 19:22 | disposition left against medical advice (07) ==
LOC: MED 17:49
DX: F10.129 Alcohol abuse with intoxication, unspecified (principal); G89.29 Other chronic pain; M54.9 Dorsalgia, unspecified; K21.9 Gastro-esophageal reflux disease without esophagitis
CPT/HCPCS: 96372; 99283; J1885

== ENCOUNTER 2018-01-24 13:02 | Emergency (ER) | payer OTHER ==
[~2018-01-24] VITALS: Ht 165.1 cm; Wt 86.2 kg
[2018-01-24 13:04] VITALS: BP 106/68
--- NOTE | 2018-01-24 13:04 | NUR ---
PT BIBA FOR BACK PAIN, TAKEN TO LOBBY BY EMS
--- NOTE | 2018-01-24 13:10 | NUR ---
PATIENT PRESENTS TO ED BIBA FOR ETOH INTOXICATION . PT IS AWAKE AND ALERT AT THIS TIME . DENIES N/V/D; SKIN IS PINK/WARM/DRY; AAOX4 WITH EVEN AND STEADY GAIT; LUNGS CLEAR BL; HR EVEN AND REGULAR; PT DENIES ANY FEVER, CP, SOB, OR COUGH AT THIS TIME; PATIENT STATES BACK PAIN OF 10/10 AT THIS TIME; VSS; PATIENT POSITIONED FOR COMFORT; HOB ELEVATED; BEDRAILS UP X2; BED DOWN. ER MD MADE AWARE OF PT STATUS.
[2018-01-24 13:45] VITALS: BP 106/68
== END 2018-01-24 13:46 | disposition home or self-care (01) ==
LOC: MED 13:02
DX: F10.129 Alcohol abuse with intoxication, unspecified (principal); K21.9 Gastro-esophageal reflux disease without esophagitis; Z79.899 Other long term (current) drug therapy
CPT/HCPCS: 99283

== ENCOUNTER 2018-02-20 13:09 | Emergency (ER) | payer OTHER ==
[~2018-02-20] VITALS: Ht 167.6 cm; Wt 99.8 kg
--- NOTE | 2018-02-20 13:09 | NUR ---
Patient BIBA BLS, transferred to bed 1. RN evaluating patient at bedside.
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
[2018-02-20 13:16] VITALS: BP 148/83
[2018-02-20] MEDS ORDERED: MULTIVITAMIN-12 10 ML, THIAMINE 100 MG, MAGNESIUM SULFATE 50% 2,000 MG, FOLIC ACID 5 MG... IV ONE ×5 (13:25)
[2018-02-20 14:06] LABS: BASOPHILS # (AUTO) 0.1 K/uL (0.00-0.22); BASOPHILS % (AUTO) 0.6 % (0.0-2.0); EOSINOPHILS # (AUTO) 0.2 K/uL (0-0.4); EOSINOPHILS % (AUTO) 1.7 % (0.0-4.0); HEMATOCRIT 41.4 % (36-52); HEMOGLOBIN 14.3 g/dL (12.0-18.0); LYMPHOCYTES % (AUTO) 32.4 % (20.5-51.1); MEAN CORPUSCULAR HEMOGLOBIN 33 pg (27-31); MEAN CORPUSCULAR HGB CONC 35 g/dL (33-37); MEAN CORPUSCULAR VOLUME 96.5 fL (80-94); MONOCYTES # (AUTO) 0.4 K/uL (0.8-1.0); MONOCYTES % (AUTO) 4.3 % (1.7-9.3); NEUTROPHILS # (AUTO) 5.7 K/uL (1.8-7.7); PLATELET COUNT (AUTO) 171 K/uL (140-450); RED BLOOD CELL COUNT(AUTO) 4.29 MIL/uL (4.20-6.10); RED CELL DISTRIBUTION WIDTH 14.3 % (11.6-13.7); WHITE BLOOD COUNT (AUTO) 9.3 K/uL (4.8-10.8)
[2018-02-20 14:32] LABS: ALBUMIN 4.1 g/dL (3.4-5.0); CARBON DIOXIDE 21.9 mmol/L (21-32); CREATININE 0.8 mg/dL (0.7-1.3); POTASSIUM 3.9 mmol/L (3.5-5.1); TOTAL BILIRUBIN 0.6 mg/dL (0.0-1.0)
[2018-02-20 15:40] VITALS: BP 144/88
--- NOTE | 2018-02-20 15:40 | NUR ---
Patient discharged with v/s stable. Written and verbal after care instructions given and explained. Patient verbalized understandin; HOWEVER, PT REFUSED TO SIGN ACI. Ambulatory with steady gait. All questions addressed prior to discharge. Advised to follow up with PMD.
== END 2018-02-20 15:40 | disposition home or self-care (01) ==
LOC: MED 13:09
DX: F10.129 Alcohol abuse with intoxication, unspecified (principal); K21.9 Gastro-esophageal reflux disease without esophagitis
CPT/HCPCS: 36415; 80053; 85025; 96365; 99284; A9153; G0482; J3411; J3475; J3490; J7030

== ENCOUNTER 2018-02-22 14:47 | Emergency (ER) | payer OTHER ==
[~2018-02-22] VITALS: Ht 165.1 cm; Wt 90.7 kg
--- NOTE | 2018-02-22 14:50 | NUR ---
PT BIBA BLS FOR BACK PAIN/ETOH TO BED 10
[2018-02-22 14:51] VITALS: BP 150/100
[2018-02-22 14:54] VITALS: BP 145/90
--- NOTE | 2018-02-22 14:54 | NUR ---
PATIENT BIBA WITH COMPLAINTS OF BACK PAIN AND ETOH INTOXICATION. DENIES N/V/D; SKIN IS PINK/WARM/DRY; AAOX4 WITH EVEN AND STEADY GAIT; LUNGS CLEAR BL; HR EVEN AND REGULAR; PT DENIES ANY FEVER, CP, SOB, OR COUGH AT THIS TIME; PATIENT STATES PAIN OF 10/10 AT THIS TIME; VSS; PATIENT POSITIONED FOR COMFORT; PATIENT SITTING UP IN CHAIR. ER MD MADE AWARE OF PT STATUS.
[2018-02-22] MEDS ORDERED: NACL 0.9% 1,000 ML IV ONE (15:20)
[2018-02-22] MEDS ORDERED: KETOROLAC 30 MG/ML VIAL IVP ONE (15:20)
--- NOTE | 2018-02-22 15:31 | NUR ---
PT TAKEN OFF THE UNIT VIA WHEEL CHAIR FOR XRAY BY ECONOMICS FACULTY MEMBER
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
--- NOTE | 2018-02-22 16:39 | NUR ---
PT STATED HE DID NOT WANT TO WAIT FOR RESULTS ANY LONGER--AMBULATED OUT OF THE ER WITH STEADY GAIT---MD NOTIFIED
--- NOTE | 2018-02-22 16:52 | NUR ---
BUS PASS PROVIDED
== END 2018-02-22 16:50 | disposition home or self-care (01) ==
LOC: MED 14:47
DX: F10.229 Alcohol dependence with intoxication, unspecified (principal); M54.9 Dorsalgia, unspecified; I10 Essential (primary) hypertension; K21.9 Gastro-esophageal reflux disease without esophagitis; G89.29 Other chronic pain
CPT/HCPCS: 72100; 96361; 96374; 99284; J1885; J7030

== ENCOUNTER 2018-02-23 22:22 | Emergency (ER) | payer OTHER ==
[~2018-02-23] VITALS: Ht 162.6 cm; Wt 99.8 kg
[2018-02-23 22:22] VITALS: BP 126/91
--- NOTE | 2018-02-23 22:22 | NUR ---
IVELISSE RODRIGUES. TAKEN TO BED 1
--- NOTE | 2018-02-23 22:30 | NUR ---
Dr. Rojas evaluating patient.
--- NOTE | 2018-02-23 22:38 | NUR ---
52YO MALE BIBA FOR ETOH, BACK PAIN. PER MEDICS PT D/C LAST NIGHT FOR SAME C/O. PT AGRESSIVE. SECURITY CALLED TO BEDSIDE. MED HX CHRONIC BACK PAIN. DENIES N/V/D; SKIN IS PINK/WARM/DRY; AAOX4 WITH EVEN AND STEADY GAIT; LUNGS CLEAR BL; HR EVEN AND REGULAR; PT DENIES ANY FEVER, CP, SOB, OR COUGH AT THIS TIME; PATIENT STATES PAIN OF 2/10 AT THIS TIME; VSS; PATIENT POSITIONED FOR COMFORT; HOB ELEVATED; BEDRAILS UP X2; BED DOWN. ER MD MADE AWARE OF PT STATUS.
[2018-02-23 22:40] VITALS: BP 126/91
--- NOTE | 2018-02-23 22:40 | NUR ---
PER ER MD Patient discharged with v/s stable. Written and verbal after care instructions given and explained. Patient alert, oriented and verbalized understanding of instructions. Ambulatory with steady gait. All questions addressed prior to discharge. ID band removed. Patient advised to follow up with PMD. Rx of IBUPROFEN 400 MG given. Patient educated on indication of medication including possible reaction and side effects. Opportunity to ask questions provided and answered.
== END 2018-02-23 22:40 | disposition home or self-care (01) ==
LOC: MED 22:22
DX: F10.129 Alcohol abuse with intoxication, unspecified (principal); Z91.19 Patient's noncompliance with other medical treatment and regimen; K21.9 Gastro-esophageal reflux disease without esophagitis; I10 Essential (primary) hypertension; Z59.0 Homelessness
CPT/HCPCS: 99282

== ENCOUNTER 2018-02-24 09:32 | Emergency (ER) | payer OTHER ==
[~2018-02-24] VITALS: Ht 165.1 cm; Wt 81.6 kg
[2018-02-24 09:35] VITALS: BP 168/106
--- NOTE | 2018-02-24 09:39 | NUR ---
PT AMBULATED TO LOBBY WITH STEADY GAIT
--- NOTE | 2018-02-24 09:39 | NUR ---
SECURITY CALL, PT UNCOOPERATIVE WITH MEDICAL STAFF.
--- NOTE | 2018-02-24 11:13 | NUR ---
PATIENT LEFT WITHOUT BEING SEEN BY DR. EDMONDS. NO FURTHER CARE PROVIDED FOR PATIENT.
== END 2018-02-24 11:12 | disposition left against medical advice (07) ==
LOC: MED 09:32
DX: F10.10 Alcohol abuse, uncomplicated (principal); Z53.21 Procedure and treatment not carried out due to patient leaving prior to being seen by health care provider

== ENCOUNTER 2018-02-28 17:00 | Emergency (ER) | payer OTHER ==
[~2018-02-28] VITALS: Ht 165.1 cm; Wt 81.6 kg
[2018-02-28 17:08] VITALS: BP 141/71
--- NOTE | 2018-02-28 17:10 | NUR ---
PT INSTRUCTED/AMBULATING TO STAY AT THE LOBBY PER RN LOI
--- NOTE | 2018-02-28 18:51 | NUR ---
PT CALLED AT THE LOBBY, NO ANSWER, LWBS
== END 2018-02-28 18:51 | disposition left against medical advice (07) ==
LOC: MED 17:00
DX: F10.129 Alcohol abuse with intoxication, unspecified (principal); Z53.21 Procedure and treatment not carried out due to patient leaving prior to being seen by health care provider

== ENCOUNTER 2018-06-25 10:06 | Emergency (ER) | payer OTHER ==
[~2018-06-25] VITALS: Ht 165.1 cm; Wt 104.3 kg
[2018-06-25 10:10] VITALS: BP 139/88
--- NOTE | 2018-06-25 10:14 | NUR ---
PT AMBULATES TO BED 2
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
[2018-06-25] MEDS ORDERED: NACL 0.9% 1,000 ML IV SCH (10:48)
[2018-06-25] MEDS ORDERED: METOCLOPRAMIDE 10 MG/2 ML INJ VIAL IVP ONE ×2 (10:50→12:10)
[2018-06-25] MEDS ORDERED: LORazepam 2 MG/ML VIAL IVP ONE (10:50)
[2018-06-25] MEDS ORDERED: FAMOTIDINE 20 MG/2 ML VIAL IVP ONE (10:50)
[2018-06-25] MEDS ORDERED: fentaNYL 0.05 MG/ML VIAL IVP ONE (10:50)
--- NOTE | 2018-06-25 10:55 | NUR ---
Patient being evaluated by physician at bedside.
--- NOTE | 2018-06-25 11:08 | NUR ---
RAD AT BEDSIDE
[2018-06-25 11:17] LABS: BASOPHILS % (AUTO) 0.2 % (0.0-2.0); EOSINOPHILS % (AUTO) 0.5 % (0.0-4.0); HEMATOCRIT 39.9 % (36-52); HEMOGLOBIN 13.8 g/dL (12.0-18.0); LYMPHOCYTES # (AUTO) 0.8 K/uL (2.0-11.5); LYMPHOCYTES % (AUTO) 12.4 % (20.5-51.1); MEAN CORPUSCULAR HEMOGLOBIN 34 pg (27-31); MEAN CORPUSCULAR HGB CONC 35 g/dL (33-37); MEAN CORPUSCULAR VOLUME 97.7 fL (80-94); MONOCYTES # (AUTO) 0.5 K/uL (0.8-1.0); NEUTROPHILS # (AUTO) 5.2 K/uL (1.8-7.7); NEUTROPHILS % (AUTO) 78.9 % (42.2-75.2); PLATELET COUNT (AUTO) 100 K/uL (140-450); RED BLOOD CELL COUNT(AUTO) 4.09 MIL/uL (4.20-6.10); RED CELL DISTRIBUTION WIDTH 15.2 % (11.6-13.7); WHITE BLOOD COUNT (AUTO) 6.6 K/uL (4.8-10.8)
[2018-06-25 11:33] LABS: PROTHROMBIN TIME 12.2 secs (10.8-13.4)
[2018-06-25 11:35] LABS: ALBUMIN 3.9 g/dL (3.4-5.0); ANION GAP 11.5 (8-16); CARBON DIOXIDE 27.9 mmol/L (21-32); CREATININE 0.7 mg/dL (0.7-1.3); POTASSIUM 3.4 mmol/L (3.5-5.1); TOTAL BILIRUBIN 1.3 mg/dL (0.0-1.0)
[2018-06-25 11:51] LABS: APPEARANCE,URINE CLEAR (CLEAR); BILIRUBIN,URINE NEGATIVE (NEGATIVE); BLOOD, URINE NEGATIVE (NEGATIVE); COLOR,URINE YELLOW (YELLOW); LEUKOCYTE ESTERASE ,URINE NEGATIVE (NEGATIVE); NITRITE, URINE NEGATIVE (NEGATIVE); UGLUCOSE NEGATIVE (NEGATIVE)
[2018-06-25] MEDS ORDERED: diphenhydrAMINE 50 MG/ML VIAL IVP ONE (12:10)
[2018-06-25 14:03] VITALS: BP 129/88
--- NOTE | 2018-06-25 14:04 | NUR ---
Patient discharged with v/s stable. Written and verbal after care instructions given and explained. Patient alert, oriented and verbalized understanding of instructions. Ambulatory with steady gait. All questions addressed prior to discharge. ID band removed. Patient advised to follow up with PMD. Rx of ATIVAN, REGLAN AND BENDARYKL given. Patient educated on indication of medication including possible reaction and side effects. Opportunity to ask questions provided and answered.
== END 2018-06-25 14:04 | disposition home or self-care (01) ==
LOC: MED 10:06
DX: F10.10 Alcohol abuse, uncomplicated (principal); R06.6 Hiccough; K21.9 Gastro-esophageal reflux disease without esophagitis; I10 Essential (primary) hypertension
CPT/HCPCS: 36415; 71045; 80053; 81003; 83690; 85025; 85610; 85730; 96361; 96374; 96375; 96376; 99285; J1200; J2060; J2765; J3010; J3490; J7030; Q0092

== ENCOUNTER 2018-07-17 13:13 | Emergency (ER) | payer OTHER ==
[~2018-07-17] VITALS: Ht 172.7 cm; Wt 92.1 kg
[2018-07-17 13:13] VITALS: BP 100/76
--- NOTE | 2018-07-17 13:54 | NUR ---
LEFT WITHOUT SEEN BY DR ASLDANA.
[2018-07-17 13:55] VITALS: BP 100/76
--- NOTE | 2018-07-17 13:56 | NUR ---
PATIENT LEFT WITHOUT BEING SEEN BY DR. SALDANA. NO FURTHER CARE PROVIDED FOR PATIENT.
== END 2018-07-17 13:56 | disposition left against medical advice (07) ==
LOC: MED 13:13
DX: G89.29 Other chronic pain (principal); M79.604 Pain in right leg; Z53.21 Procedure and treatment not carried out due to patient leaving prior to being seen by health care provider

== ENCOUNTER 2018-08-24 14:24 | Inpatient (IN) | payer OTHER ==
[~2018-08-24] VITALS: Ht 170.2 cm; Wt 91.2 kg
[2018-08-24 14:27] VITALS: BP 165/95
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
[2018-08-24] MEDS ORDERED: NACL 0.9% 1,000 ML IV ONE (14:42)
[2018-08-24] MEDS ORDERED: FAMOTIDINE 20 MG/2 ML VIAL IVP ONE (14:45)
[2018-08-24] MEDS ORDERED: diphenhydrAMINE 50 MG/ML VIAL IVP ONE (14:45)
--- NOTE | 2018-08-24 14:54 | NUR ---
RADIOLOGY COMPLETED AT BEDSIDE
--- NOTE | 2018-08-24 15:24 | NUR ---
PT. UNABLE TO PROVIDE URINE AT THIS TIME.
--- NOTE | 2018-08-24 15:31 | NUR ---
LAB AT BEDSIDE AT THIS TIME.
[2018-08-24 15:39] LABS: BASOPHILS # (AUTO) 0.1 K/uL (0.00-0.22); EOSINOPHILS # (AUTO) 0.2 K/uL (0-0.4); EOSINOPHILS % (AUTO) 2.6 % (0.0-4.0); HEMATOCRIT 42.6 % (36-52); HEMOGLOBIN 14.3 g/dL (12.0-18.0); LYMPHOCYTES # (AUTO) 2.1 K/uL (2.0-11.5); LYMPHOCYTES % (AUTO) 29.7 % (20.5-51.1); MEAN CORPUSCULAR HEMOGLOBIN 33 pg (27-31); MEAN CORPUSCULAR HGB CONC 34 g/dL (33-37); MEAN CORPUSCULAR VOLUME 97.9 fL (80-94); MONOCYTES # (AUTO) 0.4 K/uL (0.8-1.0); MONOCYTES % (AUTO) 6.1 % (1.7-9.3); NEUTROPHILS # (AUTO) 4.2 K/uL (1.8-7.7); NEUTROPHILS % (AUTO) 60.6 % (42.2-75.2); PLATELET COUNT (AUTO) 112 K/uL (140-450); RED BLOOD CELL COUNT(AUTO) 4.35 MIL/uL (4.20-6.10); RED CELL DISTRIBUTION WIDTH 14.2 % (11.6-13.7)
[2018-08-24 15:51] LABS: ANION GAP 16.9 (8-16); CHLORIDE 104 mmol/L (98-107); CREATININE 0.7 mg/dL (0.7-1.3); GFR ARICAN-AMERICAN 152 mL/min (>90); GLUCOSE 126 mg/dL (74-106); POTASSIUM 3.9 mmol/L (3.5-5.1); SODIUM SERUM 141 mmol/L (136-145); UREA NITROGEN, BLOOD 8 mg/dL (7-18)
[2018-08-24 15:59] LABS: ALBUMIN 4.2 g/dL (3.4-5.0); ASPARTATE AMINOTRANSFERASE 152 U/L (15-37); TOTAL BILIRUBIN 0.7 mg/dL (0.0-1.0)
[2018-08-24 16:21] LABS: APPEARANCE,URINE CLEAR (CLEAR); BILIRUBIN,URINE NEGATIVE (NEGATIVE); BLOOD, URINE NEGATIVE (NEGATIVE); COLOR,URINE YELLOW (YELLOW); LEUKOCYTE ESTERASE ,URINE NEGATIVE (NEGATIVE); NITRITE, URINE NEGATIVE (NEGATIVE); UGLUCOSE NEGATIVE (NEGATIVE)
--- NOTE | 2018-08-24 16:30 | NUR ---
PT. DOES NOT STAY IN BED, PT. HAS UNSTEADY GAIT AND REFUSES TO STAY IN BED, SECURITY CONTACTED.
[2018-08-24 16:38] LABS: BARBITURATE, URINE NEG. ng/ml (NEG <=200); BENZODIAZEPINE, URINE NEG. ng/mL (NEG <=200); CANNABINOID, URINE POS. ng/mL (NEG <=50); COCAINE, URINE NEG. ng/mL (NEG <=300); OPIATE, URINE NEG. ng/mL (NEG <=2000); PHENCYCLIDINE SCREEN,URINE NEG. ng/mL (NEG <=25)
--- NOTE | 2018-08-24 16:38 | NUR ---
PT. RESTING IN BED, RR EVEN AND UNLABORED . VSS WILL CONTINUE TO MONITOR. SECURITY AT BEDSIDE AT THIS TIME.
--- NOTE | 2018-08-24 17:32 | NUR ---
PT. SLEEPING COMFORTABLY IN BED, RR EVEN AND UNLABORED. VSS. BED IN LOWEST POSITION. WILL CONTINUE TO MONITOR.
[2018-08-24] MEDS ORDERED: ACETAMINOPHEN 325 MG TAB PO PRN (18:15)
[2018-08-24] MEDS ORDERED: LORazepam 1 MG TAB PO PRN (18:15)
[2018-08-24] MEDS ORDERED: NACL 0.9% 1,000 ML IV SCH (18:20)
[2018-08-24] MEDS ORDERED: LORazepam 2 MG/ML VIAL IVP PRN ×2 (18:20→18:30)
[2018-08-24] MEDS ORDERED: ONDANSETRON 4 MG/2 ML VIAL IVP PRN (18:20)
--- NOTE | 2018-08-24 18:40 | NUR ---
Patient will be admitted to care of DR. VERAS . Admited to MED SURG. Will go to room 121A. Belongings list completed. Report to LORIN CYR .
--- NOTE | 2018-08-24 19:25 | NUR ---
RECEIVED REPORT. PT IS A&O X4. NO SOB IS ON RA. NO DISTRESS NOTED. SKIN INTACT PT HAS OLD SCAR ON ABD. IV ON L FA 20G SALINE LOCK. NPO STATUS. SAFETY MEASURES IN PLACE. BED ON LOWEST POSITION. CALL LIGHT WITHIN REACH.
[2018-08-24 19:30] VITALS: BP 118/77
[2018-08-24] MEDS ORDERED: PIPERACILLIN/TAZOBACTAM 3.375 GM VIAL IV ONE (20:39)
[2018-08-24] MEDS: LORazepam 1 MG TAB PO SCH (20:48)
[2018-08-24] MEDS: NACL 0.9% 1,000 ML IV SCH (20:50)
[2018-08-24] MEDS ORDERED: PIPER/TAZO 3.375GM/D5W PREMIX 50 ML IV SCH (21:00)
[2018-08-24] MEDS ORDERED: PIPERACILLIN/TAZOBACTAM 3.375 GM in DEXTROSE 5% 50 ML IV SCH (21:00)
--- NOTE | 2018-08-24 22:31 | NUR ---
VITAL SIGNS WITHIN NORMAL LIMITS. DUE MEDICATIONS WERE GIVEN PT TOLERATED WELL. CALL LIGHT WITHIN REACH.
[2018-08-24] MEDS: MORPHINE SULFATE 4 MG/ML SYR IVP PRN (23:56)
[2018-08-25] VITALS: BP 106/66
--- NOTE | 2018-08-25 00:15 | NUR ---
PAGED DR GARCIA REGARDING PT HAVING UNCONTROLLED HICCUPS. WILL ADMINISTER BACLOFEN PER ORDER. PT TOLERATED WELL. WILL CONTINUE TO MONITOR.
[2018-08-25] MEDS ORDERED: BACLOFEN 10 MG TAB PO SCH (00:30)
--- NOTE | 2018-08-25 02:46 | NUR ---
PT IS EATING A SNACK AT BEDSIDE. NO COMPLAINS OF PAIN AT THIS TIME. NO DISTRESS NOTED. PT A&O X4. SAFETY MEASURES IN PLACE. BED ON LOWEST POSITION AND BED ALARM ON.
[2018-08-25] MEDS: LORazepam 1 MG TAB PO SCH ×3 (04:09→20:28)
[2018-08-25] MEDS: NACL 0.9% 1,000 ML IV SCH ×2 (04:15→14:15)
--- NOTE | 2018-08-25 05:00 | NUR ---
PT SLEEPING NO DISTRESS NOTED. SAFETY MEASURES IN PLACE. CALL LIGHT WITHIN REACH. WILL CONTINUE TO MONITOR.
[2018-08-25 07:25] LABS: ALBUMIN 3.7 g/dL (3.4-5.0); ANION GAP 15.3 (8-16); CARBON DIOXIDE 24.3 mmol/L (21-32); CREATININE 0.7 mg/dL (0.7-1.3); MAGNESIUM 1.7 mg/dL (1.8-2.4); POTASSIUM 3.6 mmol/L (3.5-5.1); TOTAL BILIRUBIN 0.8 mg/dL (0.0-1.0)
--- NOTE | 2018-08-25 07:38 | NUR ---
ENDORSED PT TO AURORA RN. PT IN STABLE CONDITION. SAFETY MEASURES IN PLACE.
--- NOTE | 2018-08-25 07:39 | NUR ---
RECEIVED REPORT FRPM PM NURSE AT BESIDE . PT WAS LYING ON HIS BED. HAS LF AC 20 G, IFV NS INFUSING AT 100 ML/HR. UPDATED BOARD AND INTRODUCED SELF. PT HAS GENERALIZED WEAKNESS , DX ALCOHOL INTOXICATION. PT AOX4, ABLE TO MAKE HIS NEEDS KNOWN. IS ON RA, SKIN INTACT. PLACED CALL LIGHT WITHIN PT REACH. INFORMED HIM TO USE COLEEN LIGHT FOR ANY HELP. PUT BED ALAR ON. NO SIGN OF DISTRESS NOTED. WILL CONTINUE TO MONITOR PT.
[2018-08-25 08:00] VITALS: BP 167/92
--- NOTE | 2018-08-25 08:43 | NUR ---
PATIENT HAS BEEN SCREENED AND CATEGORIZED MODERATE NUTRITION RISK. PATIENT WILL BE SEEN WITHIN 3-5 DAYS OF ADMISSION. 08/27/18 08/29/[address]
[2018-08-25] MEDS ORDERED: THIAMINE 100 MG TAB PO SCH (09:00)
[2018-08-25] MEDS ORDERED: ENOXAPARIN 40 MG/0.4 ML SYR SUBQ SCH (09:00)
[2018-08-25] MEDS: MORPHINE SULFATE 4 MG/ML SYR IVP PRN (09:01)
[2018-08-25] MEDS: BACLOFEN 10 MG TAB PO SCH ×3 (09:01→17:27)
[2018-08-25] MEDS: MULTIVITAMIN 1 TAB PO SCH (09:01)
[2018-08-25] MEDS: ENOXAPARIN 40 MG/0.4 ML SYR SUBQ SCH (09:07)
[2018-08-25] MEDS: FOLIC ACID 1 MG TAB PO SCH (09:08)
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
--- NOTE | 2018-08-25 13:00 | NUR ---
DR DEL RIO AT BEDSIDE, SEEING PT. ORDERED BANANA BAG FOR PT, GAVE VERBAL ORDER FOR PT EVALUATION AND SS SERVICE. WILL ADMINISTER MEDS ORDERED ONCE AVAILABLE. PT STABLE AT THIS TIME. NO SIGN OF DISTRESS NOTED. ASKED HI TO USE CALL LIGHT FOR ANY HELP . WILL CONTINUE TO MONITOR PT.
[2018-08-25] MEDS ORDERED: NIFEdipine 30 MG TABER PO SCH (13:30)
[2018-08-25] MEDS: chlordiazePOXIDE 25 MG CAP PO SCH ×2 (13:32→17:27)
[2018-08-25 13:53] LABS: BASOPHILS % (AUTO) 0.2 % (0.0-2.0); EOSINOPHILS % (AUTO) 0.8 % (0.0-4.0); HEMATOCRIT 38.6 % (36-52); HEMOGLOBIN 13.1 g/dL (12.0-18.0); LYMPHOCYTES # (AUTO) 0.5 K/uL (2.0-11.5); LYMPHOCYTES % (AUTO) 12.2 % (20.5-51.1); MEAN CORPUSCULAR HEMOGLOBIN 33 pg (27-31); MEAN CORPUSCULAR HGB CONC 34 g/dL (33-37); MEAN CORPUSCULAR VOLUME 97.7 fL (80-94); MONOCYTES # (AUTO) 0.3 K/uL (0.8-1.0); MONOCYTES % (AUTO) 7.1 % (1.7-9.3); NEUTROPHILS # (AUTO) 3.5 K/uL (1.8-7.7); NEUTROPHILS % (AUTO) 79.7 % (42.2-75.2); RED BLOOD CELL COUNT(AUTO) 3.95 MIL/uL (4.20-6.10); RED CELL DISTRIBUTION WIDTH 14.3 % (11.6-13.7); WHITE BLOOD COUNT (AUTO) 4.4 K/uL (4.8-10.8)
[2018-08-25 13:58] LABS: PLATELET COUNT (AUTO) 64 K/uL (140-450)
[2018-08-25] MEDS ORDERED: THIAMINE 200 MG/2 ML VIAL IV SCH (14:00)
[2018-08-25] MEDS ORDERED: MULTIVITAMIN-12 10 ML, THIAMINE 100 MG, MAGNESIUM SULFATE 50% 2,000 MG, FOLIC ACID 1 MG... IV SCH ×5 (15:00)
[2018-08-25 16:00] VITALS: BP 175/96
--- NOTE | 2018-08-25 16:08 | NUR ---
ADMINISTERED BANANA BAGS TO PT ORDERED. PT TOLERATED WELL. INFORMED PT TO USE CALL LIGHT FOR ANY HELP. PLACED CALL LIGHT WITHIN PT REACH. VERBALIZED UNDERSTANDING. WILL CONTINUE TO MONITOR PT.
--- NOTE | 2018-08-25 19:20 | NUR ---
ENDORSED PT TO P NURSE AT BEDSIDE. PT IN STABLE CONDITION.
--- NOTE | 2018-08-25 19:21 | NUR ---
RECEIVED REPORT FROM [facility] SHIFT NURSE AURORA-RN AT BESIDE . AOX4, LYING ON HIS BED. HAS LEFT AC #20G, IFV NS INFUSING AT 100 ML/HR. ON ROOM AIR. SKIN INTACT. PT USES WALKER AT HOME BUT IT IS NOT AVAILABLE IN HIS ROOM- FALL PRECAUTIONS IN PLACE. DISCUSSED PLAN OF CARE AND PT VERBALIZED UNDERSTANDING. NO S/S OF RESPIRATORY DISTRESS OR DISCOMFORT NOTED AT THIS TIME. BED IN LOWEST POSITION, BED BREAKS ON, BOTH SIDE RAILS UP AND BED ALARM ON. BEDSIDE TABLE AND CALL LIGHT ARE WITHIN REACH. WILL CONTINUE TO MONITOR.
[2018-08-25 20:00] VITALS: BP 159/91
--- NOTE | 2018-08-25 20:00 | NUR ---
VITAL SIGNS TAKEN AND TOLERATED WELL. INCREASED BP NOTED. NO S/S OF RESPIRATORY DISTRESS OR DISCOMFORT NOTED AT THIS TIME. WILL CONTINUE TO MONITOR.
--- NOTE | 2018-08-25 20:28 | NUR ---
SCHEDULED MEDICATION ATIVAN GIVEN AND TOLERATED WELL. NO S/S OF RESPIRATORY DISTRESS OR DISCOMFORT NOTED AT THIS TIME. WILL CONTINUE TO MONITOR.
--- NOTE | 2018-08-25 22:00 | NUR ---
PT RESTING IN BED WATCHING TV. NO S/S OF RESPIRATORY DISTRESS OR DISCOMFORT NOTED AT THIS TIME. WILL CONTINUE TO MONITOR.
[2018-08-26] VITALS: BP 146/80
--- NOTE | 2018-08-26 | NUR ---
VITAL SIGNS TAKEN AND TOLERATED WELL. BP DECREASING. NO S/S OF RESPIRATORY DISTRESS OR DISCOMFORT NOTED AT THIS TIME. WILL CONTINUE TO MONITOR.
--- NOTE | 2018-08-26 00:55 | NUR ---
NEW BAG OF IVF HUNG. PT TOLERATED WELL. PT CONTINUES TO SLEEP. NO S/S OF RESPIRATORY DISTRESS OR DISCOMFORT NOTED AT THIS TIME. WILL CONTINUE TO MONITOR.
[2018-08-26] MEDS: NACL 0.9% 1,000 ML IV SCH ×2 (00:56→11:08)
[2018-08-26] MEDS ORDERED: INFLUENZA VIRUS VACCINE QUAD 0.5 ML SYR IMVAC PRN (01:00)
[2018-08-26] MEDS: MORPHINE SULFATE 4 MG/ML SYR IVP PRN ×2 (02:43→08:54)
--- NOTE | 2018-08-26 02:43 | NUR ---
PT C/O LEG PAIN 04/04 REQUESTING MORPHINE AND ADMINISTERED. PT TOLERATED WELL. NO S/S OF RESPIRATORY DISTRESS OR DISCOMFORT NOTED AT THIS TIME. WILL CONTINUE TO MONITOR.
[2018-08-26] MEDS: LORazepam 1 MG TAB PO SCH ×2 (04:59→12:36)
--- NOTE | 2018-08-26 04:59 | NUR ---
SCHEDULED MEDICATION ATIVAN GIVEN AND TOLERATED WELL. NO S/S OF RESPIRATORY DISTRESS OR DISCOMFORT NOTED AT THIS TIME. WILL CONTINUE TO MONITOR.
--- NOTE | 2018-08-26 06:00 | NUR ---
PT RESTING IN BED WATCHING TV. NO S/S OF RESPIRATORY DISTRESS OR DISCOMFORT NOTED AT THIS TIME. WILL CONTINUE TO MONITOR.
[2018-08-26 07:04] LABS: BASOPHILS % (AUTO) 0.5 % (0.0-2.0); EOSINOPHILS # (AUTO) 0.2 K/uL (0-0.4); EOSINOPHILS % (AUTO) 3.6 % (0.0-4.0); HEMATOCRIT 40.3 % (36-52); HEMOGLOBIN 13.8 g/dL (12.0-18.0); MEAN CORPUSCULAR HEMOGLOBIN 33 pg (27-31); MEAN CORPUSCULAR HGB CONC 34 g/dL (33-37); MEAN CORPUSCULAR VOLUME 96.7 fL (80-94); MONOCYTES # (AUTO) 0.3 K/uL (0.8-1.0); MONOCYTES % (AUTO) 7.2 % (1.7-9.3); NEUTROPHILS # (AUTO) 2.9 K/uL (1.8-7.7); NEUTROPHILS % (AUTO) 66.7 % (42.2-75.2); PLATELET COUNT (AUTO) 61 K/uL (140-450); RED BLOOD CELL COUNT(AUTO) 4.16 MIL/uL (4.20-6.10); WHITE BLOOD COUNT (AUTO) 4.3 K/uL (4.8-10.8)
--- NOTE | 2018-08-26 07:24 | NUR ---
ENDORSED PT CARE TO DAY SHIFT NURSE RN FOR CONTINUITY OF CARE.
--- NOTE | 2018-08-26 07:30 | NUR ---
RECEIVED PT FROM PM NURSE, PT SLEEPING BUT AROUSABLE UPON ASSESSMENT. RA, NO S/S OF RESPIRATORY DISTRESS NOTED. LUNG SOUNDS CLEAR, PT HAS IV TO LEFT AC # 20 RUNNING NS AT 100 MLS/HR, SITE INTACT AND PATENT. PT HAS WALKER AT HOME BUT IT IS NOT AVAILABLE HERE. EXPLAINED TO PT CALL US WHEN HE NEEDS HELP FOR BATHROOM. POC EXPLAINED TO PT. CALL LIGHT IN REACH, WILL CONTINUE TO MONITOR.
[2018-08-26 07:39] LABS: ALBUMIN 3.6 g/dL (3.4-5.0); ANION GAP 12.5 (8-16); CARBON DIOXIDE 27.8 mmol/L (21-32); CREATININE 0.6 mg/dL (0.7-1.3); POTASSIUM 3.3 mmol/L (3.5-5.1); TOTAL BILIRUBIN 2.1 mg/dL (0.0-1.0)
[2018-08-26 08:00] VITALS: BP 170/81
[2018-08-26] MEDS: chlordiazePOXIDE 25 MG CAP PO SCH ×2 (08:50→12:35)
[2018-08-26] MEDS: MULTIVITAMIN 1 TAB PO SCH (08:50)
[2018-08-26] MEDS: BACLOFEN 10 MG TAB PO SCH ×2 (08:51→12:35)
[2018-08-26] MEDS: FOLIC ACID 1 MG TAB PO SCH (08:51)
[2018-08-26] MEDS: ENOXAPARIN 40 MG/0.4 ML SYR SUBQ SCH (09:00)
[2018-08-26] MEDS ORDERED: THIAMINE 100 MG TAB PO SCH (09:00)
[2018-08-26] MEDS ORDERED: THIAMINE 200 MG/2 ML VIAL IV SCH (09:00)
[2018-08-26] MEDS ORDERED: NIFEdipine 30 MG TABER PO SCH (09:00)
--- NOTE | 2018-08-26 09:00 | NUR ---
due meds given, pt tolerated well.
[2018-08-26] MEDS ORDERED: POTASSIUM CHLORIDE 10 MEQ TABER PO SCH (09:20)
[2018-08-26 10:00] VITALS: BP 140/86
--- NOTE | 2018-08-26 12:00 | NUR ---
offered pt lunch tray, pt has a good appetite.
[2018-08-26 13:55] VITALS: BP 132/80
[2018-08-26] MEDS ORDERED: LIB25 PO (14:14)
--- NOTE | 2018-08-26 14:15 | NUR ---
pt took a shower without incident.
[2018-08-26 14:17] VITALS: BP 132/78
--- NOTE | 2018-08-26 14:41 | NUR ---
PT IS DISCHARGED PER MD'S ORDER, FLU SHOT GIVEN BEFORE DISCHARGE, ALL BELONGS COUNTED AND SIGNED ALL THE DISCHARGE DOCUMENTATION, PRESCRIPTION GIVEN, PENITENTIARY INFORMATION AND BUS PASS GIVEN, PT VERBALIZED UNDERSTANDING ALL THE INSTRUCTIONS, PT STATED WILL GO TO GIRLFRIENDS HOUSE AFTER. PT LEFT HOSPITAL WITHOUT ACCIDENT ACCOMPANIED BY NURSE.
--- NOTE | 2018-08-27 11:18 | NUR ---
CM NOTE I WAS TOLD BY CM DIRECTOR RED TO SCHEDULE PATIENT FOR OUTPATIENT HIGH RISK APPOINTMENT WITH [facility], TO CALL PATIENT'S CONTACT NUMBER TO INFORM HIM OF HIS SCHEDULE AND TO CHECK PATIENT'S CHART IF PRESCRIPTION WAS GIVEN TO PATIENT FOR LIBRIUM. ORDER FOR HIGH RISK OUTPATIENT FF UP AND ORDER FOR LIBRIUM FAXED TO [facility] [phone] ARTURO PH# [phone] CHECKED PATIENT'S CHART AT MED[facility] RECORDS AND CONFIRMED THAT PATIENT WAS GIVEN PRESCRIPTION FOR LIBRIUM PER DONITA WHO IS COVERING FOR [facility] SUPERVISOR TUNNEL HEADING MEENAKSHI GUERRA PH# [phone], PATIENT IS SCHEDULED FOR OUTPATIENT HIGH RISK FF UP ON AUGUST 31, 2018 1400 TIME AT [address] [place] [address], PH# [phone]. SHE REQUESTED I FAX THE ORDER FOR HIGH RISK FF UP, FACESHEET, H&P, LIST OF MEDICATIONS, PATIENT VISIT REPORT TO HER FAX [phone]. I FAXED HER INFORMATION. I ATTEMPTED TO CALL PATIENT'S CONTACT NUMBER ON FACESHEET SEVERAL TIMES, NO DELIVERY RECRUITER. I LEFT MESSAGE FOR PATIENT TO CALL ME BACK CM DIRECTOR RED AWARE
--- NOTE | 2018-08-27 16:00 | NUR ---
Animal Care Assistant notes: I attempted to contact patient at (NUMBER ON FACESHEET) several times with no response and no one picking up phone call. These video game script writer left several MGS with a brief request for a return call.
== END 2018-08-26 14:30 | disposition home or self-care (01) | DRG 663 ==
LOC: MED 14:24 → MTU 18:15
PROVIDERS: ADMIT Hospitalist; ATTEND Hospitalist
PROC: 3E0234Z Introduction of Serum, Toxoid and Vaccine into Muscle, Percutaneous Approach (ICD-10-PCS; principal; 2018-08-26)
DX: D75.89 Other specified diseases of blood and blood-forming organs (principal); E87.2 Acidosis; E86.0 Dehydration; F10.239 Alcohol dependence with withdrawal, unspecified; K21.9 Gastro-esophageal reflux disease without esophagitis; I10 Essential (primary) hypertension; I49.3 Ventricular premature depolarization; T73.0XXA Starvation, initial encounter; X58.XXXA Exposure to other specified factors, initial encounter; Z59.0 Homelessness; Z23 Encounter for immunization; Y90.8 Blood alcohol level of 240 mg/100 ml or more
CPT/HCPCS: 36415; 71045; 80053; 80305; 81003; 82550; 82553; 83735; 84484; 85025; 87081; 90658; 93005; 96361; 96374; 96375; 99285; A9153; G0482; J1200; J1650; J2270; J2543; J3411; J3475; J3490; J7030; J7060; Q0092

== ENCOUNTER 2018-09-08 10:15 | Emergency (ER) | payer OTHER ==
[~2018-09-08] VITALS: Ht 170.2 cm; Wt 99.8 kg
[~2018-09-08 10:15] MED LIST changes: -ACET-2869 PO; +LIB25 PO
[2018-09-08 10:40] VITALS: BP 118/74
[2018-09-08 12:54] VITALS: BP 118/74
== END 2018-09-08 12:53 | disposition home or self-care (01) ==
LOC: MED 10:15
DX: S80.11XA Contusion of right lower leg, initial encounter (principal); S80.211A Abrasion, right knee, initial encounter; G89.29 Other chronic pain; M54.5 Low back pain; F10.20 Alcohol dependence, uncomplicated; R07.81 Pleurodynia; K21.9 Gastro-esophageal reflux disease without esophagitis; Z79.899 Other long term (current) drug therapy; W19.XXXA Unspecified fall, initial encounter; Y93.89 Activity, other specified; Y92.89 Other specified places as the place of occurrence of the external cause; Y99.8 Other external cause status
CPT/HCPCS: 73590; 99284; Q0092

== ENCOUNTER 2018-09-08 13:21 | Emergency (ER) | payer OTHER ==
[~2018-09-08] VITALS: Ht 172.7 cm; Wt 89.8 kg
[2018-09-08 13:30] VITALS: BP 132/78
== END 2018-09-08 14:15 | disposition home or self-care (01) ==
LOC: MED 13:21
DX: R06.6 Hiccough (principal); K21.9 Gastro-esophageal reflux disease without esophagitis; I10 Essential (primary) hypertension; Z79.899 Other long term (current) drug therapy
CPT/HCPCS: 99281

== ENCOUNTER 2018-09-13 10:54 | Emergency (ER) | payer OTHER ==
[~2018-09-13] VITALS: Ht 167.6 cm; Wt 93.7 kg
[2018-09-13 11:15] VITALS: BP 127/75
[2018-09-13] MEDS: traMADol 50 MG TAB PO ONE (11:45)
[2018-09-13] MEDS: PROMETHAZINE 25 MG/ML VIAL IM ONE (11:46)
[2018-09-13 11:57] LABS: BASOPHILS % (AUTO) 0.4 % (0.0-2.0); EOSINOPHILS # (AUTO) 0.1 K/uL (0-0.4); EOSINOPHILS % (AUTO) 1.9 % (0.0-4.0); HEMATOCRIT 39.7 % (36-52); HEMOGLOBIN 13.3 g/dL (12.0-18.0); LYMPHOCYTES # (AUTO) 1.6 K/uL (2.0-11.5); LYMPHOCYTES % (AUTO) 20.9 % (20.5-51.1); MEAN CORPUSCULAR HEMOGLOBIN 33 pg (27-31); MEAN CORPUSCULAR HGB CONC 34 g/dL (33-37); MEAN CORPUSCULAR VOLUME 98.1 fL (80-94); MONOCYTES # (AUTO) 0.5 K/uL (0.8-1.0); MONOCYTES % (AUTO) 7.1 % (1.7-9.3); NEUTROPHILS # (AUTO) 5.4 K/uL (1.8-7.7); NEUTROPHILS % (AUTO) 69.7 % (42.2-75.2); PLATELET COUNT (AUTO) 140 K/uL (140-450); RED BLOOD CELL COUNT(AUTO) 4.05 MIL/uL (4.20-6.10); RED CELL DISTRIBUTION WIDTH 15.1 % (11.6-13.7); WHITE BLOOD COUNT (AUTO) 7.7 K/uL (4.8-10.8)
[2018-09-13 14:35] LABS: ANION GAP 15.4 (8-16); CARBON DIOXIDE 25.6 mmol/L (21-32); CREATININE 0.8 mg/dL (0.7-1.3)
[2018-09-13 14:41] LABS: ALBUMIN 3.8 g/dL (3.4-5.0); TOTAL BILIRUBIN 0.6 mg/dL (0.0-1.0)
[2018-09-13 15:04] VITALS: BP 122/69
== END 2018-09-13 15:05 | disposition home or self-care (01) ==
LOC: MED 10:54
DX: R07.89 Other chest pain (principal); F10.129 Alcohol abuse with intoxication, unspecified; K21.9 Gastro-esophageal reflux disease without esophagitis; I10 Essential (primary) hypertension; Z79.899 Other long term (current) drug therapy
CPT/HCPCS: 36415; 71045; 80053; 83690; 83880; 84484; 85025; 93005; 96372; 99284; J2550; Q0092

== ENCOUNTER 2018-10-09 14:34 | Emergency (ER) | payer OTHER ==
[~2018-10-09] VITALS: Ht 165.1 cm; Wt 93.0 kg
[2018-10-09 14:37] VITALS: BP 106/73
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
--- NOTE | 2018-10-09 15:51 | NUR ---
PT AMBULATED TO REST ROOM
[2018-10-09 16:14] VITALS: BP 106/73
--- NOTE | 2018-10-09 16:14 | NUR ---
PT LEFT W/O BEING SEEN AT THIS TIME. MD MCNAMARA NOTIFIED. Addendum: 10/09/18 at 1617 by [email or web address] PT LEFT W/O BEING SEEN AT THIS TIME. PT WOULD NOT STAY IN HIS BED, WAS UPSET WHEN STAFF SAID HE NEEDS TO STAY IN HIS ROOM FOR OTHER PT'S PRIVACY. MD MCNMAARA NOTIFIED.
== END 2018-10-09 16:14 | disposition left against medical advice (07) ==
LOC: MED 14:34
DX: M79.604 Pain in right leg (principal); M79.605 Pain in left leg; Z53.21 Procedure and treatment not carried out due to patient leaving prior to being seen by health care provider
CPT/HCPCS: 99281

== ENCOUNTER 2018-10-18 16:02 | Emergency (ER) | payer OTHER ==
[~2018-10-18] VITALS: Ht 170.2 cm; Wt 104.3 kg
[2018-10-18 16:05] VITALS: BP 130/79
[2018-10-18] MEDS: ASPIRIN 81 MG TAB.CHEW PO ONE (16:24)
[2018-10-18 16:41] LABS: BASOPHILS % (AUTO) 0.3 % (0.0-2.0); EOSINOPHILS # (AUTO) 0.1 K/uL (0-0.4); EOSINOPHILS % (AUTO) 0.7 % (0.0-4.0); HEMATOCRIT 42.1 % (36-52); LYMPHOCYTES # (AUTO) 1.6 K/uL (2.0-11.5); LYMPHOCYTES % (AUTO) 17.4 % (20.5-51.1); MEAN CORPUSCULAR HEMOGLOBIN 32 pg (27-31); MEAN CORPUSCULAR HGB CONC 33 g/dL (33-37); MONOCYTES # (AUTO) 0.4 K/uL (0.8-1.0); MONOCYTES % (AUTO) 3.9 % (1.7-9.3); NEUTROPHILS # (AUTO) 7.2 K/uL (1.8-7.7); NEUTROPHILS % (AUTO) 77.7 % (42.2-75.2); PLATELET COUNT (AUTO) 124 K/uL (140-450); RED BLOOD CELL COUNT(AUTO) 4.34 MIL/uL (4.20-6.10); RED CELL DISTRIBUTION WIDTH 16.3 % (11.6-13.7); WHITE BLOOD COUNT (AUTO) 9.3 K/uL (4.8-10.8)
[2018-10-18 17:01] LABS: PROTHROMBIN TIME 11.2 secs (10.8-13.4)
[2018-10-18 17:02] LABS: ANION GAP 20.8 (8-16); CARBON DIOXIDE 23.1 mmol/L (21-32); CREATININE 0.8 mg/dL (0.7-1.3); POTASSIUM 3.9 mmol/L (3.5-5.1); TOTAL BILIRUBIN 0.6 mg/dL (0.0-1.0)
[2018-10-18 17:16] VITALS: BP 127/77
[2018-10-18 17:18] LABS: ALBUMIN 4.3 g/dL (3.4-5.0)
== END 2018-10-18 17:17 | disposition home or self-care (01) ==
LOC: MED 16:02
DX: R07.9 Chest pain, unspecified (principal); F10.10 Alcohol abuse, uncomplicated; I10 Essential (primary) hypertension; Z79.899 Other long term (current) drug therapy; Z59.0 Homelessness
CPT/HCPCS: 36415; 71045; 80053; 84484; 85025; 85610; 85730; 99284; Q0092

== ENCOUNTER 2018-10-20 14:03 | Emergency (ER) | payer OTHER ==
[~2018-10-20] VITALS: Ht 165.1 cm; Wt 95.3 kg
--- NOTE | 2018-10-20 14:24 | NUR ---
PATIENT AMBULATED TO ER BED 5
[2018-10-20 14:28] VITALS: BP 153/118
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
--- NOTE | 2018-10-20 14:55 | NUR ---
PT UP OUT OF BED AGAIN AT THIS TIME, AMBULATORY W/ STEADY GAIT. HARRASSING STAFF. PT TOLD TO GO BACK TO BED. PT REFUSING.
--- NOTE | 2018-10-20 14:59 | NUR ---
PT LWBS AT THIS TIME AFTER GETTING ANGRY AND SHOUTING PROFANITIES AT STAFF WHEN ASKED TO GO BACK TO HIS ROOM FOR OTHER PT PRIVACY. PAULINA ZAMORA NOTIFIED.
== END 2018-10-20 14:59 | disposition left against medical advice (07) ==
LOC: MED 14:03
DX: M79.661 Pain in right lower leg (principal); I10 Essential (primary) hypertension; F10.10 Alcohol abuse, uncomplicated; Z79.899 Other long term (current) drug therapy

== ENCOUNTER 2018-12-14 16:13 | Emergency (ER) | payer OTHER ==
[~2018-12-14] VITALS: Ht 170.2 cm; Wt 77.1 kg
[2018-12-14 16:53] VITALS: BP 144/64
[2018-12-14 17:05] VITALS: BP 144/64
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
[2018-12-14] MEDS ORDERED: LORazepam 2 MG/ML VIAL IM ONE (17:50)
--- NOTE | 2018-12-14 17:56 | NUR ---
PT. STATED " I BROUGHT A 6 PACK OF BUD LIGHT IN HERE ". PT COTINUED TO DRINK FROM URINAL AND SAID, I POURED IT IN HERE. THEIR WAS A TALL CAN OF ASHLEIGH COBRA IN TRASH. ER MD HUDSON MADE AWARE . SECURITY CALLED.
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
--- NOTE | 2018-12-14 17:57 | NUR ---
VLADIMIR RN CAME INTO ROOM WITH ME AND PT STATED " FUCK THIS PLACE IM LEAVING " I FEEL BETTER NOW. AND GOT UP AND LEFT. ER MD LORA MADE AWARE.
== END 2018-12-14 17:57 | disposition left against medical advice (07) ==
LOC: MED 16:13
DX: F11.10 Opioid abuse, uncomplicated (principal); F12.10 Cannabis abuse, uncomplicated; F10.10 Alcohol abuse, uncomplicated; F15.20 Other stimulant dependence, uncomplicated; R19.7 Diarrhea, unspecified; I10 Essential (primary) hypertension
CPT/HCPCS: 93005; 96372; 99283; J2060

== ENCOUNTER 2019-03-03 14:19 | Emergency (ER) | payer OTHER ==
[~2019-03-03] VITALS: Ht 165.1 cm; Wt 99.8 kg
[2019-03-03 14:27] VITALS: BP 130/74
--- NOTE | 2019-03-03 14:27 | NUR ---
PT BIBA TO ED BED 12
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
[2019-03-03] MEDS ORDERED: KETOROLAC 30 MG/ML VIAL IVP ONE (15:05)
[2019-03-03 15:25] LABS: BASOPHILS % (AUTO) 0.2 % (0.0-2.0); EOSINOPHILS # (AUTO) 0.1 K/uL (0-0.4); EOSINOPHILS % (AUTO) 1.1 % (0.0-4.0); HEMATOCRIT 39.5 % (36-52); HEMOGLOBIN 13.5 g/dL (12.0-18.0); LYMPHOCYTES # (AUTO) 0.9 K/uL (2.0-11.5); LYMPHOCYTES % (AUTO) 16.1 % (20.5-51.1); MEAN CORPUSCULAR HEMOGLOBIN 34 pg (27-31); MEAN CORPUSCULAR HGB CONC 34 g/dL (33-37); MEAN CORPUSCULAR VOLUME 98.8 fL (80-94); MONOCYTES # (AUTO) 0.5 K/uL (0.8-1.0); MONOCYTES % (AUTO) 9.3 % (1.7-9.3); NEUTROPHILS # (AUTO) 4.1 K/uL (1.8-7.7); NEUTROPHILS % (AUTO) 73.3 % (42.2-75.2); PLATELET COUNT (AUTO) 100 K/uL (140-450); RED CELL DISTRIBUTION WIDTH 14.4 % (11.6-13.7); WHITE BLOOD COUNT (AUTO) 5.6 K/uL (4.8-10.8)
[2019-03-03 15:41] LABS: ANION GAP 15.2 (8-16); CREATININE 0.8 mg/dL (0.7-1.3); POTASSIUM 4.2 mmol/L (3.5-5.1)
[2019-03-03 15:47] LABS: ALBUMIN 3.5 g/dL (3.4-5.0); TOTAL BILIRUBIN 0.6 mg/dL (0.0-1.0)
[2019-03-03 16:22] LABS: CREATINE KINASE MB 38.9 ng/mL (0-3.6)
[2019-03-03 16:35] VITALS: BP 135/69
== END 2019-03-03 16:40 | disposition home or self-care (01) ==
LOC: MED 14:19
DX: R07.89 Other chest pain (principal); F10.10 Alcohol abuse, uncomplicated; F15.10 Other stimulant abuse, uncomplicated; R10.12 Left upper quadrant pain; F12.10 Cannabis abuse, uncomplicated; I10 Essential (primary) hypertension; Z79.899 Other long term (current) drug therapy; Y90.4 Blood alcohol level of 80-99 mg/100 ml
CPT/HCPCS: 36415; 71045; 80053; 82550; 82553; 83690; 84484; 85025; 93005; 96374; 99284; G0482; J1885; Q0092

== ENCOUNTER 2019-03-06 23:59 | Emergency (ER) | payer OTHER ==
[~2019-03-06] VITALS: Ht 165.1 cm; Wt 90.7 kg
[2019-03-07 00:05] VITALS: BP 160/100
--- NOTE | 2019-03-07 00:05 | NUR ---
TO BED #08 AMBULATORY
--- NOTE | 2019-03-07 00:10 | NUR ---
53 y/o M presented to ED with c/o chest pain x 2 hours. 10/10 pain, sharp and constant. AAOx4. Per pt, " i've been drinking beer all day. I had alot of meth 2 hours ago." admitted to marijuana usage as well. pt tachycardic, regular rhythm. heart sounds present and normal. no JVD present. cap refill <3. bedrails x2 up. bed in lowest postion. ERMD notified. Will continue to monitor.
[2019-03-07] MEDS ORDERED: LORazepam 2 MG/ML VIAL IVP ONE (00:50)
[2019-03-07] MEDS ORDERED: NACL 0.9% 1,000 ML IV ONE (00:50)
--- NOTE | 2019-03-07 00:54 | NUR ---
EKG PERFORMED AT BEDSIDE
[2019-03-07 01:09] LABS: BASOPHILS % (AUTO) 0.3 % (0.0-2.0); EOSINOPHILS % (AUTO) 0.2 % (0.0-4.0); HEMATOCRIT 38.6 % (36-52); HEMOGLOBIN 13.2 g/dL (12.0-18.0); LYMPHOCYTES # (AUTO) 0.9 K/uL (2.0-11.5); LYMPHOCYTES % (AUTO) 11.9 % (20.5-51.1); MEAN CORPUSCULAR HEMOGLOBIN 34 pg (27-31); MEAN CORPUSCULAR HGB CONC 34 g/dL (33-37); MEAN CORPUSCULAR VOLUME 99.1 fL (80-94); MONOCYTES # (AUTO) 0.4 K/uL (0.8-1.0); MONOCYTES % (AUTO) 5.8 % (1.7-9.3); NEUTROPHILS # (AUTO) 6.3 K/uL (1.8-7.7); NEUTROPHILS % (AUTO) 81.8 % (42.2-75.2); PLATELET COUNT (AUTO) 105 K/uL (140-450); RED BLOOD CELL COUNT(AUTO) 3.89 MIL/uL (4.20-6.10); RED CELL DISTRIBUTION WIDTH 14.9 % (11.6-13.7); WHITE BLOOD COUNT (AUTO) 7.7 K/uL (4.8-10.8)
--- NOTE | 2019-03-07 01:13 | NUR ---
X-RAY AT BESIDE.
--- NOTE | 2019-03-07 01:20 | NUR ---
Pt asleep. Visible chest rise and fall. Arousable to name and light touch. VSS at this time. Will continue to monitor.
[2019-03-07 01:43] LABS: POTASSIUM 3.9 mmol/L (3.5-5.1)
[2019-03-07 01:44] LABS: ANION GAP 17.8 (8-16); CARBON DIOXIDE 26.1 mmol/L (21-32); CREATININE 0.7 mg/dL (0.7-1.3); TOTAL BILIRUBIN 0.6 mg/dL (0.0-1.0)
[2019-03-07 01:45] LABS: ALBUMIN 3.8 g/dL (3.4-5.0)
[2019-03-07] MEDS ORDERED: NACL 0.45% 1,000 ML IV ONE (02:05)
--- NOTE | 2019-03-07 02:15 | NUR ---
Pt still experiencing chest pain. 10/10 pain, sharp and constant. Dr. Barnes notified.
[2019-03-07 02:43] VITALS: BP 167/86
[2019-03-07] MEDS ORDERED: MORPHINE SULFATE 4 MG/ML SYR IVP ONE (03:15)
--- NOTE | 2019-03-07 03:49 | NUR ---
Pt awake and laying down. VSS at this time. Will continue to monitor.
--- NOTE | 2019-03-07 04:12 | NUR ---
Pt ambulated to restroom. Steady gait observed. Reattached to monitoring system. Will continue to monitor.
--- NOTE | 2019-03-07 04:16 | NUR ---
Patient discharged with v/s stable. Written and verbal after care instructions given and explained. Patient alert, oriented and verbalized understanding of instructions. Ambulatory with steady gait. All questions addressed prior to discharge. ID band removed. Patient advised to follow up with PMD.
== END 2019-03-07 04:16 | disposition home or self-care (01) ==
LOC: MED 23:59
DX: E87.0 Hyperosmolality and hypernatremia (principal); E86.0 Dehydration; F12.10 Cannabis abuse, uncomplicated; F15.10 Other stimulant abuse, uncomplicated; F10.129 Alcohol abuse with intoxication, unspecified; I10 Essential (primary) hypertension; Z79.899 Other long term (current) drug therapy; Y90.9 Presence of alcohol in blood, level not specified
CPT/HCPCS: 36415; 71045; 80053; 84484; 85025; 85379; 93005; 96361; 96374; 96375; 99284; J2060; J2270; J7030; Q0092

== ENCOUNTER 2019-03-16 13:23 | Observation (INO) | payer OTHER ==
[~2019-03-16] VITALS: Ht 162.6 cm; Wt 99.8 kg
--- NOTE | 2019-03-16 13:27 | NUR ---
ERMD AT BEDSIDE
[2019-03-16 13:28] VITALS: BP 148/78
[2019-03-16] MEDS ORDERED: diphenhydrAMINE 50 MG/ML VIAL IVP ONE (13:30)
[2019-03-16] MEDS ORDERED: FAMOTIDINE 20 MG/2 ML VIAL IVP ONE (13:30)
[2019-03-16] MEDS ORDERED: THIAMINE 200 MG/2 ML VIAL IM ONE (13:30)
[2019-03-16] MEDS ORDERED: NACL 0.9% 1,000 ML IV ONE (13:30)
--- NOTE | 2019-03-16 13:42 | NUR ---
BIBA W C/O CP STARTING 2 WEEKS AGO, 5/10 TIGHT/PRESSURE PAIN. ASPIRIN 324 MG GIVEN PO PT SKIN DRY/WARM, PT BEHAVING AND ANSWERING QUESTIONS APPROPRIATELY. PT REPORTS DRINKING 10 BEERS BEFORE 9AM TODAY. ETOH ODOR COMING FROM PT AT THIS TIME. PT IS SINUS TACH AT 101 BPM. ERMD AWARE.
[2019-03-16 13:48] LABS: BASOPHILS % (AUTO) 0.1 % (0.0-2.0); EOSINOPHILS # (AUTO) 0.1 K/uL (0-0.4); EOSINOPHILS % (AUTO) 1.5 % (0.0-4.0); HEMATOCRIT 40.3 % (36-52); HEMOGLOBIN 13.8 g/dL (12.0-18.0); LYMPHOCYTES # (AUTO) 1.3 K/uL (2.0-11.5); LYMPHOCYTES % (AUTO) 18.5 % (20.5-51.1); MEAN CORPUSCULAR HEMOGLOBIN 34 pg (27-31); MEAN CORPUSCULAR HGB CONC 34 g/dL (33-37); MEAN CORPUSCULAR VOLUME 99.3 fL (80-94); MONOCYTES # (AUTO) 0.4 K/uL (0.8-1.0); MONOCYTES % (AUTO) 6.5 % (1.7-9.3); NEUTROPHILS % (AUTO) 73.4 % (42.2-75.2); PLATELET COUNT (AUTO) 114 K/uL (140-450); RED BLOOD CELL COUNT(AUTO) 4.06 MIL/uL (4.20-6.10); RED CELL DISTRIBUTION WIDTH 14.7 % (11.6-13.7); WHITE BLOOD COUNT (AUTO) 6.9 K/uL (4.8-10.8)
[2019-03-16 13:58] LABS: ANION GAP 15.5 (8-16); CARBON DIOXIDE 24.5 mmol/L (21-32); CREATININE 0.9 mg/dL (0.7-1.3)
[2019-03-16 14:02] LABS: PROTHROMBIN TIME 11.3 secs (10.8-13.4)
[2019-03-16 14:04] LABS: ALBUMIN 3.5 g/dL (3.4-5.0); TOTAL BILIRUBIN 0.4 mg/dL (0.0-1.0)
[2019-03-16 14:14] LABS: MAGNESIUM 1.8 mg/dL (1.8-2.4)
--- NOTE | 2019-03-16 14:25 | NUR ---
PT RESTING IN BED, NO NEW NEEDS AT THIS TIME, NO CP AT THIS TIME
[2019-03-16 15:12] LABS: BARBITURATE, URINE NEG. ng/ml (NEG <=200); BENZODIAZEPINE, URINE NEG. ng/mL (NEG <=200); CANNABINOID, URINE POS. ng/mL (NEG <=50); COCAINE, URINE NEG. ng/mL (NEG <=300); OPIATE, URINE NEG. ng/mL (NEG <=2000); PHENCYCLIDINE SCREEN,URINE NEG. ng/mL (NEG <=25)
--- NOTE | 2019-03-16 15:40 | NUR ---
PT RESTING IN BED, NO CP AT THIS TIME
[2019-03-16] MEDS ORDERED: HYDROcodone/APAP 5/325 MG 1 TAB TAB PO PRN (16:05)
[2019-03-16] MEDS ORDERED: ACETAMINOPHEN 325 MG TAB PO PRN (16:05)
[2019-03-16] MEDS ORDERED: ZOLPIDEM 5 MG TAB PO PRN (16:15)
--- NOTE | 2019-03-16 17:00 | NUR ---
PATIENT ARRIVED VIA GURNEY TO UNIT. PT ABLE TO AMBULATE. AAOX4. RESPIRATIONS ARE EVEN AND UNLABORED ON ROOM AIR. PT DENIES PAIN AT THIS TIME. STATES HE NEEDS ATIVAN BECAUSE HE GETS "SHAKY" DUE TO HIS EXCESSIVE DRINKING. LEFT FA IV INTACT SL. PLAN OF CARE HAS BEEN REVIEWED WITH PT. PT VERBALIZED UNDERSTANDING. SAFETY MEASURES IN PLACE, CALL LIGHT WITHIN REACH. SEIZURE PRECAUTIONS IN PLACE. WILL CONTINUE TO MONITOR.
--- NOTE | 2019-03-16 17:00 | NUR ---
Patient will be admitted to care of [place]. Admited to TELEMETRY. Will go to room 105B. Belongings list completed. Report to RAMONA PADGETT.
[2019-03-16] MEDS: LACTATED RINGERS 1,000 ML IV SCH (17:41)
[2019-03-16] MEDS: LORazepam 2 MG/ML VIAL IVP PRN (17:41)
[2019-03-16 18:22] VITALS: BP 169/82
--- NOTE | 2019-03-16 19:27 | NUR ---
ENDORSED TO GOLF BALL MOLDER NURSE FOR CONTINUITY OF CARE. PATIENT IS STABLE.
--- NOTE | 2019-03-16 19:28 | NUR ---
REPORT RECEIVED FROM AM NURSE AT BEDSIDE. PT IN STABLE CONDITION. AAOX4. INTRODUCED SELF TO PT. BOARD UPDATED. PT HAS COMPLAINTS OF CHEST PAIN. WILL NOTIFY MD. NO SOB. AFEBRILE. IV SITE L UA 20G RUNNING LR@80ML/HR PATENT AND INTACT. SKIN WARM, DRY, AND INTACT WITH NO OPEN WOUNDS. BED LOCKED IN LOW POSITION. CALL SARAVIA WITHIN REACH. SAFETY PRECAUTIONS IN PLACE. ALL NEEDS MET AT THIS TIME.
[2019-03-16 20:00] VITALS: BP 144/77
--- NOTE | 2019-03-16 20:05 | NUR ---
PT COMPLAINS OF CHEST PAIN. WILL NOTIFY MD AND AWAITING NEW ORDERS.
--- NOTE | 2019-03-16 20:10 | NUR ---
MD CALLED BACK. NOTIFIED OF CHEST PAIN. ORDERED TYL 650. THAT ORDER IS ALREADY WITHIN PATIENTS MED LIST AND [place] 1 UNIT PO PRN. TORB
[2019-03-16] MEDS ORDERED: ALUMINUM HYD/MAG/SIMETHICONE 30 ML UDC PO PRN (20:20)
[2019-03-16] MEDS: MORPHINE SULFATE 4 MG/ML SYR IVP PRN (20:38)
--- NOTE | 2019-03-16 20:38 | NUR ---
MORPHINE GIVEN FOR 8/10 CHEST PAIN. PT TOLERATED WELL.
--- NOTE | 2019-03-16 22:00 | NUR ---
PT LAYING AWAKE IN BED HIGH FOWLERS. NO S/S OF DISTRESS NOTED. WILL CONTINUE TO MONITOR.
--- NOTE | 2019-03-16 23:30 | NUR ---
PT ASLEEP BUT AROUSABLE. VS STABLE. NO S/S OF DISTRESS NOTED. WILL CONTINUE TO MONITOR.
[2019-03-17] VITALS: BP 141/64
--- NOTE | 2019-03-17 00:55 | NUR ---
PT SLEEPING COMFORTABLY. NO S/S OF DISTRESS NOTED. NO COMPLAINTS OF PAIN. NO SOB. AFEBRILE. WILL CONTINUE TO MONITOR.
[2019-03-17] MEDS: MORPHINE SULFATE 4 MG/ML SYR IVP PRN ×2 (01:13→08:02)
--- NOTE | 2019-03-17 01:13 | NUR ---
MORPHINE GIVEN FOR 7/10 PAIN. PT TOLERATED WELL.
--- NOTE | 2019-03-17 03:15 | NUR ---
PATIENT COMPLAINED OF FEELING ANXIOUS AND RESTLESSNESS. PRN ATIVAN ADMINISTERED PER ORDER. WILL CONTINUE TO MONITOR
[2019-03-17] MEDS: LORazepam 2 MG/ML VIAL IVP PRN ×2 (03:16→09:51)
[2019-03-17 04:00] VITALS: BP 157/92
[2019-03-17] MEDS: LACTATED RINGERS 1,000 ML IV SCH (04:14)
--- NOTE | 2019-03-17 05:15 | NUR ---
PT SLEEPING COMFORTABLY IN BED BUT AROUSABLE. NO S/S OF DISTRESS NOTED. NO COMPLAINTS OF PAIN. NO SOB. AFEBRILE. WILL CONTINUE TO MONITOR.
[2019-03-17 06:48] LABS: BASOPHILS % (AUTO) 0.4 % (0.0-2.0); EOSINOPHILS # (AUTO) 0.1 K/uL (0-0.4); EOSINOPHILS % (AUTO) 2.5 % (0.0-4.0); HEMATOCRIT 37.9 % (36-52); LYMPHOCYTES % (AUTO) 20.5 % (20.5-51.1); MEAN CORPUSCULAR HEMOGLOBIN 34 pg (27-31); MEAN CORPUSCULAR HGB CONC 34 g/dL (33-37); MEAN CORPUSCULAR VOLUME 99.2 fL (80-94); MONOCYTES # (AUTO) 0.4 K/uL (0.8-1.0); MONOCYTES % (AUTO) 8.3 % (1.7-9.3); NEUTROPHILS # (AUTO) 3.3 K/uL (1.8-7.7); NEUTROPHILS % (AUTO) 68.3 % (42.2-75.2); PLATELET COUNT (AUTO) 81 K/uL (140-450); RED BLOOD CELL COUNT(AUTO) 3.82 MIL/uL (4.20-6.10); RED CELL DISTRIBUTION WIDTH 14.1 % (11.6-13.7); WHITE BLOOD COUNT (AUTO) 4.8 K/uL (4.8-10.8)
[2019-03-17 06:59] LABS: ALBUMIN 3.1 g/dL (3.4-5.0); ANION GAP 13.1 (8-16); CARBON DIOXIDE 25.5 mmol/L (21-32); CREATININE 0.7 mg/dL (0.7-1.3); MAGNESIUM 1.6 mg/dL (1.8-2.4); POTASSIUM 3.6 mmol/L (3.5-5.1); TOTAL BILIRUBIN 0.9 mg/dL (0.0-1.0)
--- NOTE | 2019-03-17 07:10 | NUR ---
PT REPORT RECEIVED FROM WORKFORCE DEVELOPMENT SPECIALIST NURSE. PT IS AWAKE AND ALERT, NO S/S OF ANY ACUTE DISTRESS NOTED. PT IS ON 2L O2 NC. SKIN IS INTACT. IV SITE IS ON THE L UPPER ARM, 20 G, INFUSING LR 80 ML/HR. PT IS AMBULATORY, ON A 2 G SODIUM DIET. CALL LIGHT IS WITHIN REACH. WILL CONTINUE TO MONITOR.
--- NOTE | 2019-03-17 07:17 | NUR ---
REPORT GIVEN TO AM NURSE AT BEDSIDE. PT IN STABLE CONDITION.
[2019-03-17 08:00] VITALS: BP 182/96
--- NOTE | 2019-03-17 08:05 | NUR ---
PT C/O 06/04 CHEST PAIN. HIS BP IS ELEVATED AT THIS TIME 182/96. PRN MORPHINE ADMINISTERED. WILL RECHECK BP WITHIN AN HOUR AND NOTIFY MD IF BP IS STILL ELEVATED.
--- NOTE | 2019-03-17 08:11 | NUR ---
PATIENT HAS BEEN SCREENED AND CATEGORIZED MODERATE NUTRITION RISK. PATIENT WILL BE SEEN WITHIN 3-5 DAYS OF ADMISSION. 03/18/19JOY [address]
--- NOTE | 2019-03-17 08:32 | NUR ---
DR NEWELL NOTIFIED OF PT'S MAG 1.6, HE ORDERED A 2 G [address] MAG RIDER. DR NEWELL ALSO MADE AWARE OF PT'S ELEVATED BP.
[2019-03-17] MEDS ORDERED: MAG SULF 2000 MG/WATER PREMIX 50 ML IV SCH (09:00)
--- NOTE | 2019-03-17 09:44 | NUR ---
STOPPED LR INFUSION AND HUNG 50 ML MAG RIDER AT THIS TIME TO DRIP AT 25 ML/HR.
--- NOTE | 2019-03-17 11:44 | NUR ---
MAGNESIUM RIDER IVPB FINISHED, ALL 50 ML VOLUME INFUSED.
--- NOTE | 2019-03-17 13:00 | NUR ---
PT HAS DC'D. PT WAS GIVEN DC INSTRUCTIONS AND PRESCRIPTION TO WHICH HE VERBALIZED UNDERSTANDING. IV SITE AND WRIST BAND WERE REMOVED. PT LEFT WITH ALL HIS BELONGINGS IN STABLE CONDITION.
--- NOTE | 2019-03-18 11:32 | NUR ---
CM ATTEMPTED TO CONTACT PATIENT @ P TO INFORM REGARDING FOLLOW UP APPOINTMENT. HOWEVER, PATIENT IS CURRENTLY NOT HOME. CM SPOKE WITH MOTHER AND PROVIDED INFORMATION REGARDING FOLLOW UP APPOINTMENT FOLLOWS: [facility] MD: SHERRY SALDANA ADDRESS: [address] [place] [address]. [place] [address] PHONE: WALK-IN CLINIC: M-F @ 8AM-8PM AND SAT @ 8:30AM-5PM
== END 2019-03-17 13:00 | disposition home or self-care (01) ==
LOC: MED 13:23 → MTU 16:12
PROVIDERS: ADMIT Internal Medicine Pulmonary Disease; ATTEND Internal Medicine Pulmonary Disease
DX: R07.89 Other chest pain (principal); F41.9 Anxiety disorder, unspecified; E66.9 Obesity, unspecified; F10.129 Alcohol abuse with intoxication, unspecified
CPT/HCPCS: 36415; 71045; 80053; 80305; 83605; 83735; 83880; 84484; 85025; 85610; 85730; 87081; 93005; 96365; 96366; 96372; 96375; 96376; 99285; G0378; G0482; J1200; J2060; J2270; J3411; J3475; J3490; J7120; Q0092; 96361; 96374

== ENCOUNTER 2019-03-19 08:13 | Emergency (ER) | payer OTHER ==
[~2019-03-19] VITALS: Ht 165.1 cm; Wt 95.3 kg
[2019-03-19 08:23] VITALS: BP 140/63
--- NOTE | 2019-03-19 08:23 | NUR ---
Patient ambulated to bed 9. RN evaluating patient at bedside.
--- NOTE | 2019-03-19 08:29 | NUR ---
PATIENT BIB SELF C/O RIGHT RIBS PAIN DOWN TO LEGS, COULD NOT WALK OR MOVE X2 DAYS, ALSO C/O SOB, CLEAR LUNG SOULDS ALVARO. HX OF ETOH, SEIZURE. AAOX4 WITH UNSTEADY GAIT; HR EVEN AND REGULAR; PATIENT STATES PAIN OF 10/10 AT THIS TIME; VSS; PATIENT POSITIONED FOR COMFORT; HOB ELEVATED; BEDRAILS UP X2; BED DOWN. ER MD MADE AWARE OF PT STATUS.
--- NOTE | 2019-03-19 08:50 | NUR ---
Patient being evaluated by physician at bedside.
[2019-03-19 10:23] VITALS: BP 140/63
--- NOTE | 2019-03-19 10:23 | NUR ---
Patient discharged with v/s stable. Written and verbal after care instructions given and explained. Patient was agitated, refused to sign discharge paper, dr. Feldman aware. Advised to follow up with PMD.
== END 2019-03-19 10:23 | disposition home or self-care (01) ==
LOC: MED 08:13
DX: R07.81 Pleurodynia (principal); F91.9 Conduct disorder, unspecified; J98.11 Atelectasis; F15.10 Other stimulant abuse, uncomplicated; F12.10 Cannabis abuse, uncomplicated; F17.200 Nicotine dependence, unspecified, uncomplicated; I10 Essential (primary) hypertension; Z79.899 Other long term (current) drug therapy
CPT/HCPCS: 71045; 99283

== ENCOUNTER 2019-03-22 05:25 | Emergency (ER) | payer OTHER ==
[~2019-03-22] VITALS: Ht 175.3 cm; Wt 104.3 kg
[2019-03-22 05:25] VITALS: BP 164/79
--- NOTE | 2019-03-22 05:25 | NUR ---
PT FANTA BLS. TAKEN TO BED 8
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
--- NOTE | 2019-03-22 05:33 | NUR ---
Dr. Quintanilla evaluating patient at bedside.
[2019-03-22] MEDS ORDERED: KETOROLAC 60 MG/2 ML VIAL IM ONE (05:40)
[2019-03-22] MEDS ORDERED: HYDROcodone/APAP 5/325 MG 1 TAB TAB PO ONE (05:40)
[2019-03-22] MEDS ORDERED: BACITRACIN OINT 500 UNITS/GM PKT TP ONE ×2 (05:55→06:00)
--- NOTE | 2019-03-22 06:00 | NUR ---
Patient discharged with v/s stable. Patient acting appropriatly, states he wants to go home now. Patient states pain is 3/10 at this time. Patient provided with bus pass. Written and verbal after care instructions given and explained. Patient alert, oriented and verbalized understanding of instructions. Ambulatory with steady gait. All questions addressed prior to discharge. ID band removed. Patient advised to follow up with PMD. Rx of Tramadol Hydrochloride given. Patient educated on indication of medication including possible reaction and side effects. Opportunity to ask questions provided and answered.
[2019-03-22 06:08] VITALS: BP 148/79
== END 2019-03-22 06:00 | disposition home or self-care (01) ==
LOC: MED 05:25
DX: S31.821A Laceration without foreign body of left buttock, initial encounter (principal); S20.20XA Contusion of thorax, unspecified, initial encounter; I10 Essential (primary) hypertension; F17.200 Nicotine dependence, unspecified, uncomplicated; Z79.899 Other long term (current) drug therapy; W45.8XXA Other foreign body or object entering through skin, initial encounter; Y93.89 Activity, other specified; Y92.89 Other specified places as the place of occurrence of the external cause; Y99.8 Other external cause status
CPT/HCPCS: 96372; 99283; J1885

== ENCOUNTER 2019-03-24 14:33 | Emergency (ER) | payer OTHER ==
[~2019-03-24] VITALS: Ht 165.1 cm; Wt 90.7 kg
[2019-03-24 14:40] VITALS: BP 195/112
--- NOTE | 2019-03-24 14:50 | NUR ---
53 Y MALE BIB SELF C/O CHEST PAIN, SOB, HICCUPS FOR 2 DAYS. CHEST PAIN NON RADIATING 10/10 PAIN AT REST. FELT DIZZY AND LIGHTHEADED. LUNGS CLEAR BILATERALLY. PT ON RA AT 99%. RESPIRATION 20. PT TACHY AT 111. BP 195/112 IN TRIAGE. NOW BP 173/99. AA0X4. BED IS DOWN, LOCKED, BED RAIL X 1, ERMD TO SEE PT. PMH- HTN, ALCOHOLISM, DRUG ABUSE
--- NOTE | 2019-03-24 14:52 | NUR ---
[facility] EMT AT BEDSIDE FOR EKG
--- NOTE | 2019-03-24 14:53 | NUR ---
DR LORA AT PT BEDSIDE
[2019-03-24] MEDS ORDERED: KETOROLAC 60 MG/2 ML VIAL IM ONE (14:55)
--- NOTE | 2019-03-24 15:01 | NUR ---
XRAY AT BEDSIDE
--- NOTE | 2019-03-24 15:02 | NUR ---
PT C/O DIZZINESS. ADVISED TO USE URINAL AT BEDSIDE. PT STATES HE WANTS TO WALK TO THE BATHROOM. STEADY GAIT NOTED.
--- NOTE | 2019-03-24 15:04 | NUR ---
LAB AT BEDSIDE
--- NOTE | 2019-03-24 15:09 | NUR ---
TORADOL ADMINISTERED IM LEFT DELTOID
--- NOTE | 2019-03-24 15:11 | NUR ---
PT GIVEN WATER FOR HICCUPS
[2019-03-24] MEDS ORDERED: FAMOTIDINE 20 MG TAB PO ONE (15:30)
[2019-03-24] MEDS ORDERED: ONDANSETRON 4 MG ODT PO ONE (15:30)
--- NOTE | 2019-03-24 15:34 | NUR ---
PT C/O STOMACH PAIN AND NAUSEA. PT GIVEN PEPCID AND ZOFRAN PO
[2019-03-24 16:20] VITALS: BP 141/79
--- NOTE | 2019-03-24 16:20 | NUR ---
Patient discharged with v/s stable. Written and verbal after care instructions given and explained. Patient alert, oriented and verbalized understanding of instructions. Ambulatory with steady gait. All questions addressed prior to discharge. ID band removed. Patient advised to follow up with PMD. Rx of zofran and pepcid given. Patient educated on indication of medication including possible reaction and side effects. Opportunity to ask questions provided and answered. pt provided with bus pass.
== END 2019-03-24 16:20 | disposition home or self-care (01) ==
LOC: MED 14:33
DX: R07.89 Other chest pain (principal); R06.6 Hiccough; R06.02 Shortness of breath; F10.10 Alcohol abuse, uncomplicated; I10 Essential (primary) hypertension; F12.10 Cannabis abuse, uncomplicated; F15.10 Other stimulant abuse, uncomplicated; Z79.899 Other long term (current) drug therapy; Y90.9 Presence of alcohol in blood, level not specified
CPT/HCPCS: 36415; 71045; 84484; 93005; 96372; 99284; J1885; Q0092; Q0162

== ENCOUNTER 2019-04-03 05:48 | Emergency (ER) | payer OTHER ==
[~2019-04-03] VITALS: Ht 165.1 cm; Wt 99.8 kg
[2019-04-03 05:50] VITALS: BP 150/79
--- NOTE | 2019-04-03 05:50 | NUR ---
TO BED # 07 AMBULATORY
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
--- NOTE | 2019-04-03 06:20 | NUR ---
DR. MCNAMARA EVALUATING PT AT BEDSIDE.
[2019-04-03] MEDS ORDERED: KETOROLAC 60 MG/2 ML VIAL IM ONE (06:30)
[2019-04-03 06:52] VITALS: BP 150/79
--- NOTE | 2019-04-03 06:52 | NUR ---
Patient discharged with v/s stable. Written and verbal after care instructions given and explained. Patient alert, oriented and verbalized understanding of instructions. Ambulatory with steady gait. All questions addressed prior to discharge. ID band removed. Patient advised to follow up with PMD. Rx of Motrin, Keflex, and [place] given. Patient educated on indication of medication including possible reaction and side effects. Opportunity to ask questions provided and answered.
== END 2019-04-03 06:52 | disposition home or self-care (01) ==
LOC: MED 05:48
DX: S20.20XA Contusion of thorax, unspecified, initial encounter (principal); S71.112D Laceration without foreign body, left thigh, subsequent encounter; L03.116 Cellulitis of left lower limb; I10 Essential (primary) hypertension; Z79.899 Other long term (current) drug therapy; X58.XXXD Exposure to other specified factors, subsequent encounter; X99.9XXA Assault by unspecified sharp object, initial encounter; Y93.89 Activity, other specified; Y92.89 Other specified places as the place of occurrence of the external cause; Y99.8 Other external cause status
CPT/HCPCS: 96372; 99283; J1885

== ENCOUNTER 2019-04-26 15:03 | Observation (INO) | payer OTHER ==
[~2019-04-26] VITALS: Ht 165.1 cm; Wt 98.0 kg
[2019-04-26 15:17] VITALS: BP 177/105
--- NOTE | 2019-04-26 15:32 | NUR ---
TO BED 1 WITH STEADY GAIT.
--- NOTE | 2019-04-26 15:32 | NUR ---
BIB SELF. AAO X4 C/O INTERMITTENT LEFT SIDED CHEST PAIN RADIATES TO BACK AND SOB X YESTERDAY. INSOMNIA X 2 DAYS. PT ADMITS TO USING METH 2 DAYS AGO. METH USE TIMES A MONTH X 6 MONTHS. AAO X4, FULL CLEAR SPEECH, FACIAL SYMMETRY, PERRLA, BRISK 2 MM, EQUAL ALVARO STRENGTH TO UPPER AND LOWER EXTREMITIES. PT PLACED ON FULL PHYSICAL SCIENCES INSTRUCTOR. HOB UP. BED SIDE RAILS UP X1. ON LOW BED POSITION, LOCKED. ER MADE AWARE OF PT STATUS.
--- NOTE | 2019-04-26 15:53 | NUR ---
PT INSTRUCTED ON GIVING SPUTUM SAMPLE
[2019-04-26] MEDS ORDERED: LORazepam 2 MG/ML VIAL IVP ONE (15:55)
[2019-04-26 16:00] LABS: BASOPHILS % (AUTO) 0.5 % (0.0-2.0); EOSINOPHILS # (AUTO) 0.2 K/uL (0-0.4); EOSINOPHILS % (AUTO) 3.1 % (0.0-4.0); HEMATOCRIT 39.1 % (36-52); HEMOGLOBIN 13.2 g/dL (12.0-18.0); LYMPHOCYTES # (AUTO) 1.3 K/uL (2.0-11.5); LYMPHOCYTES % (AUTO) 18.6 % (20.5-51.1); MEAN CORPUSCULAR HEMOGLOBIN 32 pg (27-31); MEAN CORPUSCULAR HGB CONC 34 g/dL (33-37); MEAN CORPUSCULAR VOLUME 94.1 fL (80-94); MONOCYTES # (AUTO) 0.5 K/uL (0.8-1.0); MONOCYTES % (AUTO) 6.5 % (1.7-9.3); NEUTROPHILS % (AUTO) 71.3 % (42.2-75.2); PLATELET COUNT (AUTO) 135 K/uL (140-450); RED BLOOD CELL COUNT(AUTO) 4.16 MIL/uL (4.20-6.10); RED CELL DISTRIBUTION WIDTH 14.3 % (11.6-13.7)
[2019-04-26 16:01] LABS: PROTHROMBIN TIME 11.9 secs (10.8-13.4)
[2019-04-26 16:08] LABS: ANION GAP 14.7 (8-16); CARBON DIOXIDE 23.9 mmol/L (21-32); CREATININE 0.8 mg/dL (0.7-1.3); POTASSIUM 3.6 mmol/L (3.5-5.1)
[2019-04-26 16:14] LABS: ALBUMIN 3.7 g/dL (3.4-5.0)
[2019-04-26 16:16] LABS: C-REACTIVE PROTEIN QUANT < 0.2 mg/dL (0.0-0.9)
[2019-04-26 16:19] LABS: D-DIMER < 100 ng/ml (0-400)
--- NOTE | 2019-04-26 16:25 | NUR ---
DR EDMONDS AT BEDSIDE FOR PT EVALUATION
[2019-04-26 16:27] LABS: MAGNESIUM 1.7 mg/dL (1.8-2.4)
[2019-04-26 16:46] LABS: BARBITURATE, URINE NEG. ng/ml (NEG <=200); BENZODIAZEPINE, URINE POS. ng/mL (NEG <=200); CANNABINOID, URINE NEG. ng/mL (NEG <=50); COCAINE, URINE NEG. ng/mL (NEG <=300); OPIATE, URINE NEG. ng/mL (NEG <=2000); PHENCYCLIDINE SCREEN,URINE NEG. ng/mL (NEG <=25)
--- NOTE | 2019-04-26 16:56 | NUR ---
PT AAO X4. FULL CLEAR SPEECH. NO FACIAL ASSYMETRY. VSS. ON FULL MANAGER HELPDESK. WILL CONTINUE TO MONITOR.
[2019-04-26] MEDS ORDERED: MORPHINE SULFATE 4 MG/ML SYR IVP ONE (17:20)
[2019-04-26] MEDS ORDERED: ONDANSETRON 4 MG/2 ML VIAL IVP ONE (17:20)
[2019-04-26] MEDS ORDERED: ONDANSETRON 4 MG/2 ML VIAL IVP PRN (17:30)
[2019-04-26] MEDS ORDERED: MORPHINE SULFATE 4 MG/ML SYR IVP PRN (17:30)
[2019-04-26] MEDS ORDERED: ALBUTEROL 0.083% 2.5 MG/3 ML NEBU INH PRN (17:30)
[2019-04-26] MEDS ORDERED: LORazepam 2 MG/ML VIAL IVP PRN (17:30)
[2019-04-26] MEDS ORDERED: ACETAMINOPHEN 325 MG TAB PO PRN (17:30)
--- NOTE | 2019-04-26 17:50 | NUR ---
Patient will be admitted to care of Dr Grier. Admited to Tele. Will go to room 112 B. Belongings list completed. Report to LORIN Garcia.
--- NOTE | 2019-04-26 17:50 | NUR ---
RECEIVED BEDSIDE REPORT FROM ER NURSE. PATIENT IS AWAKE, ALERT AND ORIENTEDX4. NO SIGNS OF DISTRESS ON 2L NC. SKIN IS INTACT. IV ON R HAND 20G SL. CLEAN, DRY AND INTACT. PATIENT IS AMBULATORY. CONTINENT. MRSA SWAB DONE. VITALS WITHIN NORMAL LIMITS B/P 137/74 HR 86 TEMP 98.5 O2SAT 98% RR 18. ORDERED PATIENT A FOOD TRAY. NO OTHER COMPLAINTS AT THIS TIME. BED IN LOW POSITION. CALL LIGHT WITHIN REACH. WILL CONTINUE TO MONITOR
--- NOTE | 2019-04-26 19:08 | NUR ---
GAVE BEDSIDE REPORT TO TRUCK GUARD NURSE. PATIENT ENDORSED IN STABLE CONDITION.
--- NOTE | 2019-04-26 19:10 | NUR ---
RECEIVED BEDSIDE REPORT FROM IZABELA PADGETT. PT IS AAOX4. ON ROOM AIR. RESPIRATIONS ARE EQUAL AND UNLABORED. PATIENT IS SITTING ON BED EATING DINNER TRAY NO COMPLAINS OF PAIN AT THIS TIME. IV ON R HAND SL. PATIENT IS OBSERVATION. PLAN OF CARE DISCUSSED WITH PT. CALL LIGHT IS WITHIN REACH. WILL CONTINUE TO MONITOR.
[2019-04-26 20:00] VITALS: BP 102/50
[2019-04-26] MEDS ORDERED: MAG SULF 2000 MG/WATER PREMIX 50 ML IV ONE (21:05)
--- NOTE | 2019-04-26 21:15 | NUR ---
PAGED DR SOUZA REGARDING PT MG LEVEL 1.7 NEW ORDER FOR MG RIDER 2000MG.
[2019-04-26] MEDS: HYDROcodone/APAP 5/325 MG 1 TAB TAB PO PRN (21:25)
--- NOTE | 2019-04-26 22:15 | NUR ---
PATIENT IS RESTING IN BED WATCHING TV. NO S/S OF DISTRESS. CALL LIGHT IS WITHIN REACH. WILL CONTINUE TO MONITOR.
[2019-04-27] VITALS: BP 137/81
--- NOTE | 2019-04-27 | NUR ---
VITAL SIGNS ARE WITHIN NORMAL LIMITS. DENIES PAIN. NO S/S OF DISTRESS. ALL NEEDS MET AT THIS TIME. WILL CONTINUE TO MONITOR.
[2019-04-27] MEDS: HYDROcodone/APAP 5/325 MG 1 TAB TAB PO PRN ×2 (01:36→08:51)
--- NOTE | 2019-04-27 02:20 | NUR ---
PATIENT IS RESTING COMFORTABLY IN BED WATCHING TV. NO S/S OF DISTRESS. CALL LIGHT IS WITHIN REACH. WILL CONTINUE TO MONITOR.
[2019-04-27 04:00] VITALS: BP 142/86
--- NOTE | 2019-04-27 04:25 | NUR ---
VITAL SIGNS ARE WITHIN NORMAL LIMITS. PATIENT IS LAYING COMFORTABLY IN BED. NO S/S OF DISTRESS. CALL LIGHT IS WITHIN REACH. WILL CONTINUE TO MONITOR.
--- NOTE | 2019-04-27 07:28 | NUR ---
GAVE BEDSIDE REPORT TO DAY SHIFT RN. PT ENDORSED IN STABLE CONDITION.
--- NOTE | 2019-04-27 07:29 | NUR ---
RECEIVED REPORT FROM CASSANDRA CONSULTANT RN. PT IN STABLE CONDITION. NO C/O PAIN OR DISCOMFORT AT THIS TIME. LUNGS CTAB, REGULAR RATE AND EFFORT. S1 AND S2 PRESENT, NO MURMURS. PT RESTING COMFORTABLY IN BED, ALL NEEDS MET AT THIS TIME. IV SITE PATENT AND ASYMPTOMATIC, ON SL. AMBULATORY WITHOUT ASSIST. SKIN INTACT. OBSERVATION PT. ALL SAFETY PRECAUTIONS IN PLACE, WILL CONTINUE TO MONITOR.
[2019-04-27 08:00] VITALS: BP 127/87
[2019-04-27 08:33] LABS: BASOPHILS % (AUTO) 0.2 % (0.0-2.0); EOSINOPHILS # (AUTO) 0.2 K/uL (0-0.4); EOSINOPHILS % (AUTO) 2.9 % (0.0-4.0); HEMATOCRIT 38.5 % (36-52); HEMOGLOBIN 12.9 g/dL (12.0-18.0); LYMPHOCYTES # (AUTO) 1.1 K/uL (2.0-11.5); LYMPHOCYTES % (AUTO) 17.5 % (20.5-51.1); MEAN CORPUSCULAR HEMOGLOBIN 32 pg (27-31); MEAN CORPUSCULAR HGB CONC 34 g/dL (33-37); MEAN CORPUSCULAR VOLUME 95.2 fL (80-94); MONOCYTES # (AUTO) 0.4 K/uL (0.8-1.0); MONOCYTES % (AUTO) 6.1 % (1.7-9.3); NEUTROPHILS # (AUTO) 4.6 K/uL (1.8-7.7); NEUTROPHILS % (AUTO) 73.3 % (42.2-75.2); PLATELET COUNT (AUTO) 130 K/uL (140-450); RED BLOOD CELL COUNT(AUTO) 4.04 MIL/uL (4.20-6.10); RED CELL DISTRIBUTION WIDTH 14.9 % (11.6-13.7); WHITE BLOOD COUNT (AUTO) 6.3 K/uL (4.8-10.8)
[2019-04-27] MEDS: ENOXAPARIN 40 MG/0.4 ML SYR SUBQ SCH ×2 (08:50→08:54)
[2019-04-27 08:53] LABS: ALBUMIN 3.5 g/dL (3.4-5.0); ANION GAP 13.4 (8-16); CARBON DIOXIDE 25.9 mmol/L (21-32); CREATININE 0.8 mg/dL (0.7-1.3); MAGNESIUM 1.7 mg/dL (1.8-2.4); POTASSIUM 4.3 mmol/L (3.5-5.1)
--- NOTE | 2019-04-27 08:55 | NUR ---
PT REFUSED LOVENOX-STATES HE DOESN'T NEED IT. EXPLAINED IT IS PREVENTATIVE FOR BLOOD CLOTS. PT STILL STATES HE DOESN'T NEED IT BUT SAYS "I'LL THINK ABOUT IT AND LET YOU KNOW". WILL PLACE LOVENOX IN PT CASSETTE.
[2019-04-27] MEDS ORDERED: ASPIRIN 81 MG TAB.CHEW PO SCH (09:00)
--- NOTE | 2019-04-27 09:11 | NUR ---
PATIENT HAS BEEN SCREENED AND CATEGORIZED MODERATE NUTRITION RISK. PATIENT WILL BE SEEN WITHIN 3-5 DAYS OF ADMISSION. 04/26/19[address]
--- NOTE | 2019-04-27 10:28 | NUR ---
DR. NEWELL AT BEDSIDE TO EVAL PATIENT.
[2019-04-27] MEDS ORDERED: PROP20TA29 PO (11:42)
[2019-04-27 12:00] VITALS: BP 140/77
--- NOTE | 2019-04-27 12:07 | NUR ---
NATO FRANCIS WORKING OUT PCP APPOINTMENT- [facility] PCP OFFICE LINE HAS BEEN BUSY.
--- NOTE | 2019-04-27 12:12 | NUR ---
NATO FRANCIS INFORMED PATIENT THAT NO APPOINTMENT NEEDED FOR PCP. PT MAY JUST WALK IN ANYTIME.
--- NOTE | 2019-04-27 12:35 | NUR ---
DISCHARGE PAPERWORK, INCLUDING INSTRUCTIONS TO F/U WITH PCP WITHIN ONE WEEK, GIVEN TO PATIENT. NEW PRESCRIPTION/MEDICATION TEACHING AND MEDICATION RECONCILIATION TEACHING GIVEN TO PATIENT. PT VERBALIZED COMPLETE UNDERSTANDING. PNEUMOVAX RECEIVED IN 2017. FLU NOT IN SEASON. IV SITE REMOVED WITH MINIMAL BLOOD LOSS AND LUMEN COMPLETELY INTACT. ID BANDS REMOVED. ALL PERSONAL BELONGINGS ARE WITH PATIENT. PATIENT GIVEN A BUS PASS AND WILL GO HOME.
--- NOTE | 2019-04-27 12:44 | NUR ---
CALLED PATIENT'S PCP'S OFFICE [phone] SPOKE WITH KALPESH THE LEAF CONDITIONER STATED NO NEED TO MAKE THE APPOINTMENT, PATIENT CAN WALK IN ANY DAY AND TIME. EXPLAINED TO THE PATIENT ,VERBALIZED UNDERSTATING.
== END 2019-04-27 12:35 | disposition home or self-care (01) ==
LOC: MED 15:03 → MTU 17:32
PROVIDERS: ADMIT Internal Medicine Pulmonary Disease; ATTEND Internal Medicine Pulmonary Disease
DX: M94.0 Chondrocostal junction syndrome [Tietze] (principal); F41.9 Anxiety disorder, unspecified; F15.10 Other stimulant abuse, uncomplicated; F10.20 Alcohol dependence, uncomplicated; R00.2 Palpitations; E66.01 Morbid (severe) obesity due to excess calories; Z87.891 Personal history of nicotine dependence
CPT/HCPCS: 36415; 71045; 80053; 80305; 82550; 82553; 83735; 83880; 84484; 85025; 85379; 85610; 86140; 87081; 93005; 94760; 96365; 96366; 96375; 96376; 99285; G0378; G0482; J1650; J2060; J2270; J2405; J3475; Q0092

== ENCOUNTER 2019-04-29 10:39 | Observation (INO) | payer OTHER ==
[~2019-04-29] VITALS: Ht 162.6 cm; Wt 97.5 kg
[~2019-04-29 10:39] MED LIST changes: +PROP20TA29 PO
[2019-04-29 11:02] VITALS: BP 146/82
--- NOTE | 2019-04-29 11:06 | NUR ---
PT TO WAIT IN ER LOBBY UNTIL BED AVAILABLE, PT AMB WITH STEADY GAIT
--- NOTE | 2019-04-29 11:30 | NUR ---
Note undone in EDM - 04/29/19 at 1339 by MEDBENJI PT BIB SELF WITH C/O CHEST PAIN AND SOB SINCE LAST NIGHT. CP IS NON-RADIATING 10/10 AT REST. PATIENT ON RA AT 97%. NO ACCESSORY MUSCLE NOTED. WAS SEEN HERE THURSDAY, WAS ADMITTED, AND DISCHARGED ON THURSDAY. PATIENT STATES TOOK METH ON THURSDAY MORNING. WAS PRESCRIBED A MEDICATION FOR BP, CANT RECALL NAME. STATES HE IS TAKING THE MEDICATIONS. PT AA0X4. STATES TO HAVE DONE METH USE ON LAST THURSDAY THIS WEEK. ER MD TO SEE THE PT. PMH- ALCOHOL ABUSE, SUBSTANCE ABUSE
--- NOTE | 2019-04-29 12:14 | NUR ---
Patient ambulated to bed 7. RN evaluating patient at bedside.
[2019-04-29] MEDS ORDERED: KETOROLAC 15 MG/ML VIAL IVP ONE (12:20)
--- NOTE | 2019-04-29 12:34 | NUR ---
career technical education teacher at bedside.
--- NOTE | 2019-04-29 12:42 | NUR ---
Dr. Cordoba evaluating patient at bedside.
--- NOTE | 2019-04-29 12:45 | NUR ---
PT BIB SELF WITH C/O CHEST PAIN AND SOB SINCE LAST NIGHT. CP IS NON-RADIATING 10/10 AT REST. PATIENT ON RA AT 97%. NO ACCESSORY MUSCLE NOTED. WAS SEEN HERE THURSDAY, WAS ADMITTED, AND DISCHARGED ON THURSDAY. PATIENT STATES TOOK METH ON THURSDAY MORNING. WAS PRESCRIBED A MEDICATION FOR BP, CANT RECALL NAME. STATES HE IS TAKING THE MEDICATIONS. PT AA0X4. STATES TO HAVE DONE METH USE ON LAST THURSDAY THIS WEEK. ER MD TO SEE THE PT. PMH- ALCOHOL ABUSE, SUBSTANCE ABUSE
[2019-04-29 13:01] LABS: BASOPHILS % (AUTO) 0.3 % (0.0-2.0); EOSINOPHILS # (AUTO) 0.3 K/uL (0-0.4); EOSINOPHILS % (AUTO) 3.4 % (0.0-4.0); HEMATOCRIT 41.7 % (36-52); HEMOGLOBIN 13.9 g/dL (12.0-18.0); LYMPHOCYTES # (AUTO) 1.5 K/uL (2.0-11.5); LYMPHOCYTES % (AUTO) 16.9 % (20.5-51.1); MEAN CORPUSCULAR HEMOGLOBIN 32 pg (27-31); MEAN CORPUSCULAR HGB CONC 33 g/dL (33-37); MONOCYTES # (AUTO) 0.6 K/uL (0.8-1.0); MONOCYTES % (AUTO) 6.2 % (1.7-9.3); NEUTROPHILS # (AUTO) 6.6 K/uL (1.8-7.7); NEUTROPHILS % (AUTO) 73.2 % (42.2-75.2); PLATELET COUNT (AUTO) 170 K/uL (140-450); RED BLOOD CELL COUNT(AUTO) 4.39 MIL/uL (4.20-6.10); RED CELL DISTRIBUTION WIDTH 14.4 % (11.6-13.7)
[2019-04-29 13:07] LABS: ANION GAP 14.5 (8-16); CARBON DIOXIDE 25.8 mmol/L (21-32); CREATININE 0.8 mg/dL (0.7-1.3); POTASSIUM 4.3 mmol/L (3.5-5.1)
[2019-04-29 13:13] LABS: ALBUMIN 3.7 g/dL (3.4-5.0); TOTAL BILIRUBIN 0.7 mg/dL (0.0-1.0)
[2019-04-29 13:42] LABS: BARBITURATE, URINE NEG. ng/ml (NEG <=200); BENZODIAZEPINE, URINE POS. ng/mL (NEG <=200); CANNABINOID, URINE POS. ng/mL (NEG <=50); COCAINE, URINE NEG. ng/mL (NEG <=300); OPIATE, URINE NEG. ng/mL (NEG <=2000); PHENCYCLIDINE SCREEN,URINE NEG. ng/mL (NEG <=25)
--- NOTE | 2019-04-29 14:00 | NUR ---
PT RESTING COMFORTABLY IN HIS BED AT THIS TIME. PAIN 03/04. DENIES OF TAKING ANY MEDS AT HOME THIS TIME.
[2019-04-29] MEDS ORDERED: ONDANSETRON 4 MG/2 ML VIAL IVP PRN (14:55)
[2019-04-29] MEDS ORDERED: LORazepam 2 MG/ML VIAL IVP PRN (14:55)
[2019-04-29] MEDS ORDERED: ACETAMINOPHEN 325 MG TAB PO PRN (14:55)
[2019-04-29] MEDS ORDERED: ALBUTEROL 0.083% 2.5 MG/3 ML NEBU INH PRN (14:55)
[2019-04-29] MEDS ORDERED: HYDROcodone/APAP 5/325 MG 1 TAB TAB PO PRN ×2 (14:55)
--- NOTE | 2019-04-29 15:05 | NUR ---
Dr. Rodriguez evaluating patient at bedside.
--- NOTE | 2019-04-29 15:12 | NUR ---
DR. NEWELL STATES THAT PATIENT WILL BE DISCHARGED.
[2019-04-29 15:49] VITALS: BP 120/67
--- NOTE | 2019-04-29 15:49 | NUR ---
Patient discharged with v/s stable. Written and verbal after care instructions given and explained. Patient alert, oriented and verbalized understanding of instructions. Ambulatory with steady gait. All questions addressed prior to discharge. ID band removed. Patient advised to follow up with PMD. Opportunity to ask questions provided and answered.
[2019-04-29] MEDS ORDERED: PROPRANOLOL 20 MG TAB PO SCH (21:00)
[2019-04-30] MEDS ORDERED: ASPIRIN 81 MG TAB.CHEW PO SCH (09:00)
== END 2019-04-29 15:49 | disposition home or self-care (01) ==
LOC: MED 10:39 → MTU 14:55 → INTOOBSV 14:55
PROVIDERS: ADMIT Internal Medicine Pulmonary Disease; ATTEND Internal Medicine Pulmonary Disease
DX: M94.0 Chondrocostal junction syndrome [Tietze] (principal); F12.10 Cannabis abuse, uncomplicated; F15.10 Other stimulant abuse, uncomplicated; F41.9 Anxiety disorder, unspecified; I10 Essential (primary) hypertension; Z79.899 Other long term (current) drug therapy; Z91.14 Patient's other noncompliance with medication regimen; Z71.51 Drug abuse counseling and surveillance of drug abuser
CPT/HCPCS: 36415; 71045; 80053; 80305; 83735; 83880; 84484; 85025; 85379; 93005; 96374; 99291; G0378; G0482; J1885

== ENCOUNTER 2019-06-17 12:21 | Emergency (ER) | payer OTHER ==
[~2019-06-17] VITALS: Ht 165.1 cm; Wt 102.5 kg
[~2019-06-17 12:21] MED LIST changes: -LIB25 PO
[2019-06-17 12:46] VITALS: BP 130/85
--- NOTE | 2019-06-17 12:51 | NUR ---
PT TO WAIT IN ER LOBBY FOR AVAILABLE BED. VSS. AA0X4.
--- NOTE | 2019-06-17 13:50 | NUR ---
PT TO ER BED 8
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
--- NOTE | 2019-06-17 15:13 | NUR ---
DR. PEREZ AT PT BEDSIDE
[2019-06-17] MEDS ORDERED: KETOROLAC 30 MG/ML VIAL IM ONE (15:35)
[2019-06-17] MEDS ORDERED: LIDOCAINE 5% 1 EA PATCH TP STA (15:51)
[2019-06-17 17:45] VITALS: BP 128/76
--- NOTE | 2019-06-17 17:45 | NUR ---
Patient discharged with v/s stable. Written and verbal after care instructions given and explained. Patient alert, oriented and verbalized understanding of instructions. Ambulatory with steady gait. All questions addressed prior to discharge. ID band removed. Patient advised to follow up with PMD. Rx of TORADOL 10MG AND LIDOCAINE 5% TRANSDERMAL PATCH given. Patient educated on indication of medication including possible reaction and side effects. Opportunity to ask questions provided and answered.
[2019-06-18] MEDS ORDERED: LIDOCAINE 5% 1 EA PATCH TP SCH (09:00)
== END 2019-06-17 17:45 | disposition home or self-care (01) ==
LOC: MED 12:21
DX: S20.20XA Contusion of thorax, unspecified, initial encounter (principal); I10 Essential (primary) hypertension; F12.90 Cannabis use, unspecified, uncomplicated; Z79.899 Other long term (current) drug therapy; W01.198A Fall on same level from slipping, tripping and stumbling with subsequent striking against other object, initial encounter; Y93.89 Activity, other specified; Y92.89 Other specified places as the place of occurrence of the external cause; Y99.8 Other external cause status
CPT/HCPCS: 71101; 96372; 99283; J1885

== ENCOUNTER 2019-07-04 23:39 | Emergency (ER) | payer OTHER ==
[~2019-07-04] VITALS: Ht 165.1 cm; Wt 81.6 kg
[2019-07-04 23:39] VITALS: BP 129/78
--- NOTE | 2019-07-04 23:39 | NUR ---
PT AMBULATED TO BED 12.
--- NOTE | 2019-07-04 23:40 | NUR ---
53/M BIBA C/O BILAT RIB PAIN X1 WEEK AFTER FALL. PT AWAKE AND ALERT. A/O X3 PERSON, PLACE AND TIME. NOT ORIENTED TO EVENT. UNALBE TO PROVIDE INFORMATION. CONTINUES TO GO OFF TOPIC AND SPEAK RANDOM COMMENTS LIKE "VERONICA DIXON AT THE [facility], IT WAS A BIG DEAL BACK IN MY DAY". HX ALCOHOLISM. STATES NO RX. DENIES ALLERGIES. VSS. PT STABLE AT THIS TIME. WILL CONTINUE TO MONITOR.
--- NOTE | 2019-07-04 23:41 | NUR ---
PT DOES NOT STATE PAIN AT THIS TIME OF ASSESSMENT. STATES FEELS SOB. O2 SAT 97%. VSS.
--- NOTE | 2019-07-05 | NUR ---
PT WHEELCHAIRED TO XRAY
--- NOTE | 2019-07-05 00:15 | NUR ---
MONITORING PT FOR PRIMARY NURSE
--- NOTE | 2019-07-05 00:19 | NUR ---
PT RETURNED FROM RAD VIA WHEELCHAIR
--- NOTE | 2019-07-05 00:28 | NUR ---
ERMD AT BEDSIDE.
--- NOTE | 2019-07-05 00:47 | NUR ---
Hubert goodman in ED - 07/05/19 at 0048 by [facility] REPORT GIVEN TO PRIMARY NURSE. PT IN STABLE CONDITION
--- NOTE | 2019-07-05 00:47 | NUR ---
REPORT GIVEN TO PRIMARY NURSE. PT IN STABLE CONDITION
[2019-07-05 01:12] LABS: BASOPHILS % (AUTO) 0.2 % (0.0-2.0); EOSINOPHILS # (AUTO) 0.2 K/uL (0-0.4); EOSINOPHILS % (AUTO) 2.6 % (0.0-4.0); HEMATOCRIT 37.2 % (36-52); HEMOGLOBIN 12.6 g/dL (12.0-18.0); LYMPHOCYTES # (AUTO) 1.9 K/uL (2.0-11.5); LYMPHOCYTES % (AUTO) 31.1 % (20.5-51.1); MEAN CORPUSCULAR HEMOGLOBIN 31 pg (27-31); MEAN CORPUSCULAR HGB CONC 34 g/dL (33-37); MEAN CORPUSCULAR VOLUME 91.9 fL (80-94); MONOCYTES # (AUTO) 0.5 K/uL (0.8-1.0); MONOCYTES % (AUTO) 7.8 % (1.7-9.3); NEUTROPHILS # (AUTO) 3.6 K/uL (1.8-7.7); NEUTROPHILS % (AUTO) 58.3 % (42.2-75.2); PLATELET COUNT (AUTO) 83 K/uL (140-450); RED BLOOD CELL COUNT(AUTO) 4.05 MIL/uL (4.20-6.10); RED CELL DISTRIBUTION WIDTH 16.7 % (11.6-13.7); WHITE BLOOD COUNT (AUTO) 6.3 K/uL (4.8-10.8)
[2019-07-05 01:28] LABS: ANION GAP 17.5 (8-16); CARBON DIOXIDE 23.5 mmol/L (21-32)
[2019-07-05 01:29] LABS: ALBUMIN 3.5 g/dL (3.4-5.0); CREATININE 0.8 mg/dL (0.7-1.3); TOTAL BILIRUBIN 0.6 mg/dL (0.0-1.0)
--- NOTE | 2019-07-05 01:31 | NUR ---
PT AMBULATED TO RESTROOM. STEADY GAIT. EXCESSIVE TALKING. ABLE TO MAKE NEEDS KNOWN. NO PAIN STATED AT THIS TIME. VSS.
[2019-07-05] MEDS ORDERED: IBUPROFEN 600 MG TAB PO ONE (01:35)
--- NOTE | 2019-07-05 02:46 | NUR ---
PT SLEEPING IN BED. EVEN UNLABORED BREATHING 95% O2 SAT ROOM AIR. VSS
--- NOTE | 2019-07-05 04:05 | NUR ---
PT SLEEPING IN BED. NO SIGNS OF DISTRESS. EVEN UNLABORED BREATHING. O2 SAT 96%.
--- NOTE | 2019-07-05 04:58 | NUR ---
PT SLEEPING. NO SIGNS OF RESP DISTRESS. VSS. O2 SAT 96 @3L NC. WILL CONTINUE TO MONITOR.
--- NOTE | 2019-07-05 05:16 | NUR ---
BUS VOUCHER PROVIDED FOR TRANSPORTATION PRIOR TO LEAVING HOSPITAL
[2019-07-05 05:17] VITALS: BP 130/66
== END 2019-07-05 05:17 | disposition home or self-care (01) ==
LOC: MED 23:39
DX: R07.81 Pleurodynia (principal); R07.89 Other chest pain; F10.10 Alcohol abuse, uncomplicated; Z79.899 Other long term (current) drug therapy
CPT/HCPCS: 36415; 71111; 80053; 84484; 85025; 93005; 99284

== ENCOUNTER 2019-08-04 15:44 | Emergency (ER) | payer OTHER ==
[~2019-08-04] VITALS: Ht 165.1 cm; Wt 99.8 kg
[2019-08-04 15:45] VITALS: BP 175/105
--- NOTE | 2019-08-04 15:45 | NUR ---
Pt placed in bed 3 by EMS.
--- NOTE | 2019-08-04 16:08 | NUR ---
Patient being evaluated by Dr. Zeng at bedside.
[2019-08-04] MEDS ORDERED: LORazepam 2 MG/ML VIAL IM ONE (16:15)
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
--- NOTE | 2019-08-04 17:30 | NUR ---
BP 153/92, HR 125, PT DENIES CP, SOB, N/V. DR HARTMAN MADE AWARE, PER ER MD, PT IS OK FOR DISCHARGE.
[2019-08-04 17:37] VITALS: BP 153/92
== END 2019-08-04 17:37 | disposition home or self-care (01) ==
LOC: MED 15:44
DX: F19.10 Other psychoactive substance abuse, uncomplicated (principal); F10.10 Alcohol abuse, uncomplicated; Z79.899 Other long term (current) drug therapy
CPT/HCPCS: 93005; 96372; 99283; J2060

== ENCOUNTER 2019-11-20 11:02 | Emergency (ER) | payer OTHER ==
[~2019-11-20] VITALS: Ht 162.6 cm; Wt 98.0 kg
[2019-11-20 11:15] VITALS: BP 128/89
--- NOTE | 2019-11-20 11:22 | NUR ---
Hubert goodman in [facility] - 11/20/19 at 1122 by CYNTHIA PT TAKEN TO ER BED 12
--- NOTE | 2019-11-20 11:23 | NUR ---
WAIT AT LOBBY. HAND ON URINE CUP .
[2019-11-20] MEDS ORDERED: KETOROLAC 60 MG/2 ML VIAL IM ONE (12:00)
[2019-11-20 12:30] VITALS: BP 122/75
--- NOTE | 2019-11-20 12:30 | NUR ---
Patient discharged with v/s stable. Written and verbal after care instructions given and explained. Patient alert, oriented and verbalized understanding of instructions. Ambulatory with steady gait. All questions addressed prior to discharge. ID band removed. Patient advised to follow up with PMD. Rx of IBU given. Patient educated on indication of medication including possible reaction and side effects. Opportunity to ask questions provided and answered.
== END 2019-11-20 12:30 | disposition home or self-care (01) ==
LOC: MED 11:02
DX: G89.29 Other chronic pain (principal); M54.5 Low back pain; F17.200 Nicotine dependence, unspecified, uncomplicated; Z79.899 Other long term (current) drug therapy
CPT/HCPCS: 96372; 99283; J1885

== ENCOUNTER 2019-11-23 15:52 | Emergency (ER) | payer OTHER ==
[~2019-11-23] VITALS: Ht 172.7 cm; Wt 90.7 kg
[2019-11-23 15:52] VITALS: BP 174/89
--- NOTE | 2019-11-23 15:56 | NUR ---
TO LOBBY VIA W/C AWAITING BED IN ED.
[2019-11-23] MEDS ORDERED: KETOROLAC 60 MG/2 ML VIAL IM ONE (17:55)
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
[2019-11-23 18:08] VITALS: BP 174/89
== END 2019-11-23 18:08 | disposition home or self-care (01) ==
LOC: MED 15:52
DX: G89.29 Other chronic pain (principal); M54.9 Dorsalgia, unspecified; F10.129 Alcohol abuse with intoxication, unspecified; Y90.9 Presence of alcohol in blood, level not specified; R03.0 Elevated blood-pressure reading, without diagnosis of hypertension; Z79.899 Other long term (current) drug therapy
CPT/HCPCS: 96372; 99283; J1885

== ENCOUNTER 2019-12-25 09:53 | Emergency (ER) | payer OTHER ==
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
== END 2019-12-25 10:01 | disposition left against medical advice (07) ==
LOC: MED 09:53
DX: M54.9 Dorsalgia, unspecified (principal); Z53.21 Procedure and treatment not carried out due to patient leaving prior to being seen by health care provider

== ENCOUNTER 2019-12-26 11:29 | Emergency (ER) | payer OTHER ==
[~2019-12-26] VITALS: Ht 167.6 cm; Wt 90.7 kg
[2019-12-26 11:42] VITALS: BP 134/79
--- NOTE | 2019-12-26 11:43 | NUR ---
TRIAGE COMPLETE. VSS. TO LOBBY AWAITNG BED IN ED.
--- NOTE | 2019-12-26 12:00 | NUR ---
PT AMBULATED OUT FOR ER [facility] WITH STEADY GAIT--
== END 2019-12-26 12:00 | disposition left against medical advice (07) ==
LOC: MED 11:29
DX: M79.601 Pain in right arm (principal); Z53.21 Procedure and treatment not carried out due to patient leaving prior to being seen by health care provider

== ENCOUNTER 2019-12-28 13:07 | Emergency (ER) | payer OTHER ==
[~2019-12-28] VITALS: Ht 167.6 cm; Wt 90.7 kg
[2019-12-28 13:12] VITALS: BP 137/63
--- NOTE | 2019-12-28 14:22 | NUR ---
1ST CALL IN ER N/A
--- NOTE | 2019-12-28 14:33 | NUR ---
1429 2ND CALL IN ER N/A 1437 3RD CALL ER [facility] N/A
== END 2019-12-28 14:22 | disposition left against medical advice (07) ==
LOC: MED 13:07
DX: M79.601 Pain in right arm (principal); Z53.21 Procedure and treatment not carried out due to patient leaving prior to being seen by health care provider

== ENCOUNTER 2020-02-27 03:10 | Emergency (ER) | payer OTHER ==
[~2020-02-27] VITALS: Ht 167.6 cm; Wt 96.6 kg
--- NOTE | 2020-02-27 03:10 | NUR ---
PT TAKEN TO BED 7
[2020-02-27 03:12] VITALS: BP 187/107
[2020-02-27] MEDS ORDERED: KETOROLAC 30 MG/ML VIAL IM ONE (03:25)
[2020-02-27] MEDS ORDERED: LORazepam 2 MG/ML VIAL IM ONE (03:25)
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
--- NOTE | 2020-02-27 03:54 | NUR ---
PATIENT O2 SATURATION 92%, PLACED ON 2L NC. SPO2 95%. ERMD MADE AWARE
[2020-02-27 04:35] VITALS: BP 147/74
--- NOTE | 2020-02-27 04:35 | NUR ---
Patient discharged with v/s stable. Written and verbal after care instructions about chest pain (nonspecific) given and explained. Patient verbalized understanding. Ambulatory with steady gait. All questions addressed prior to discharge. Advised to follow up with PMD.
== END 2020-02-27 04:35 | disposition home or self-care (01) ==
LOC: MED 03:10
DX: R07.9 Chest pain, unspecified (principal); Z79.899 Other long term (current) drug therapy
CPT/HCPCS: 93005; 96372; 99284; J1885; J2060

== ENCOUNTER 2020-05-10 15:24 | Emergency (ER) | payer OTHER ==
[~2020-05-10] VITALS: Ht 165.1 cm; Wt 99.8 kg
[2020-05-10 16:12] VITALS: BP 143/97
--- NOTE | 2020-05-10 16:14 | NUR ---
PT TAKEN TO BED 12. AMBULATORY WITH STEADY GAIT.
[2020-05-10] MEDS ORDERED: ASPIRIN 81 MG TAB.CHEW PO ONE (16:35)
[2020-05-10] MEDS ORDERED: LORazepam 2 MG/ML VIAL IVP ONE (16:35)
[2020-05-10] MEDS ORDERED: NACL 0.9% 1,000 ML IV ONE (16:35)
[2020-05-10] MEDS ORDERED: KETOROLAC 30 MG/ML VIAL IVP ONE (16:45)
[2020-05-10 17:16] LABS: BASOPHILS # (AUTO) 0.1 K/uL (0.00-0.22); BASOPHILS % (AUTO) 0.8 % (0.0-2.0); EOSINOPHILS % (AUTO) 0.7 % (0.0-4.0); HEMATOCRIT 41.9 % (36-52); HEMOGLOBIN 14.1 g/dL (12.0-18.0); LYMPHOCYTES # (AUTO) 0.6 K/uL (2.0-11.5); LYMPHOCYTES % (AUTO) 8.5 % (20.5-51.1); MEAN CORPUSCULAR HEMOGLOBIN 34 pg (27-31); MEAN CORPUSCULAR HGB CONC 34 g/dL (33-37); MEAN CORPUSCULAR VOLUME 100.7 fL (80-94); MONOCYTES # (AUTO) 0.4 K/uL (0.8-1.0); NEUTROPHILS # (AUTO) 6.1 K/uL (1.8-7.7); PLATELET COUNT (AUTO) 66 K/uL (140-450); RED BLOOD CELL COUNT(AUTO) 4.17 MIL/uL (4.20-6.10); RED CELL DISTRIBUTION WIDTH 15.2 % (11.6-13.7); WHITE BLOOD COUNT (AUTO) 7.3 K/uL (4.8-10.8)
[2020-05-10 17:36] LABS: ALBUMIN 3.4 g/dL (3.4-5.0); ANION GAP 16.5 (8-16); CARBON DIOXIDE 23.4 mmol/L (21-32); CREATININE 0.8 mg/dL (0.6-1.3); POTASSIUM 3.9 mmol/L (3.5-5.1)
[2020-05-10 18:38] VITALS: BP 160/77
--- NOTE | 2020-05-10 18:38 | NUR ---
Patient discharged with v/s stable. Written and verbal after care instructions given and explained. Patient alert, oriented and verbalized understanding of instructions. Ambulatory with steady gait. All questions addressed prior to discharge. ID band removed. Patient advised to follow up with PMD. Rx of Zofran ODT 4mg and Ativan 1mg given. Patient educated on indication of medication including possible reaction and side effects. Opportunity to ask questions provided and answered.
--- NOTE | 2020-05-10 18:38 | NUR ---
IV removed, catheter intact and site benign. Applied folded 4x4 gauze and tape to stop bleeding.
== END 2020-05-10 18:38 | disposition home or self-care (01) ==
LOC: MED 15:24
DX: R07.9 Chest pain, unspecified (principal); R10.9 Unspecified abdominal pain; F10.129 Alcohol abuse with intoxication, unspecified; R06.6 Hiccough; R11.2 Nausea with vomiting, unspecified
CPT/HCPCS: 36415; 71045; 80053; 83690; 84484; 85025; 93005; 96361; 96374; 96375; 99285; J1885; J2060; J7030; Q0092

== ENCOUNTER 2020-12-03 20:28 | Emergency (ER) | payer OTHER ==
[~2020-12-03] VITALS: Ht 165.1 cm; Wt 90.7 kg
[2020-12-03 20:36] VITALS: BP 163/87
--- NOTE | 2020-12-03 20:36 | NUR ---
TO BED AMBULATORY
--- NOTE | 2020-12-03 20:50 | NUR ---
FRANCISCO MONTES AT BEDSIDE FOR MEDICAL EVALUATION
--- NOTE | 2020-12-03 21:00 | NUR ---
Patient assessment completed by FRANCISCO , no nursing interventions needed at this time.
--- NOTE | 2020-12-03 21:10 | NUR ---
PT LEFT TO RADIOLOGY VIA [facility]
--- NOTE | 2020-12-03 21:35 | NUR ---
assisted pt to the ed restroom
--- NOTE | 2020-12-03 21:43 | NUR ---
assisted pt back to ed bed 6
[2020-12-03 22:12] VITALS: BP 163/87
--- NOTE | 2020-12-03 22:12 | NUR ---
Patient presented to facility under the influence of Alcohol. Patient is currently ambulatory with steady gait, able to walk unassisted. Positive gag reflex. Alert and oriented. Is not driving self for discharge out of facility.Patient discharged with v/s stable, patient signed form as arnoldo baby. Written and verbal after care instructions given and explained. Patient alert, oriented and verbalized understanding of instructions. Ambulatory with steady gait. All questions addressed prior to discharge. ID band removed. Patient advised to follow up with PMD. Rx of [place] and Ibuprofen given. Patient educated on indication of medication including possible reaction and side effects. Opportunity to ask questions provided and answered.
--- NOTE | 2020-12-03 22:18 | NUR ---
Family for pt has been called and states they will be picking him up.
== END 2020-12-03 22:12 | disposition home or self-care (01) ==
LOC: MED 20:28
DX: S70.02XA Contusion of left hip, initial encounter (principal); F10.10 Alcohol abuse, uncomplicated; R41.82 Altered mental status, unspecified; F17.200 Nicotine dependence, unspecified, uncomplicated; Z79.899 Other long term (current) drug therapy; Z98.890 Other specified postprocedural states; V09.9XXA Pedestrian injured in unspecified transport accident, initial encounter; Y93.89 Activity, other specified; Y92.89 Other specified places as the place of occurrence of the external cause; Y99.8 Other external cause status
CPT/HCPCS: 73590; 99284

== ENCOUNTER 2021-06-05 22:28 | Emergency (ER) | payer OTHER ==
[~2021-06-05] VITALS: Ht 177.8 cm; Wt 90.7 kg
[2021-06-05 23:00] VITALS: BP 136/74
--- NOTE | 2021-06-06 00:45 | NUR ---
PER ADMIT INSURANCE CLAIM REPRESENTATIVE, PT STATED "I'M GOING TO THE LIQUOR STORE. I'LL BE BACK LATER." PATIENT LEFT WITHOUT BEING SEEN BY DR. SCOTT. NO FURTHER CARE PROVIDED FOR PATIENT.
== END 2021-06-06 00:45 | disposition left against medical advice (07) ==
LOC: MED 22:28
DX: F10.10 Alcohol abuse, uncomplicated (principal); Z53.21 Procedure and treatment not carried out due to patient leaving prior to being seen by health care provider

== ENCOUNTER 2021-06-06 21:29 | Emergency (ER) | payer OTHER ==
[~2021-06-06] VITALS: Ht 167.6 cm; Wt 91.2 kg
[2021-06-06 22:23] VITALS: BP 108/64
[2021-06-06 22:32] VITALS: BP 124/58
== END 2021-06-06 22:32 | disposition home or self-care (01) ==
LOC: MED 21:29
DX: R31.9 Hematuria, unspecified (principal); F10.10 Alcohol abuse, uncomplicated
CPT/HCPCS: 81002; 99281; 99282

== ENCOUNTER 2021-06-07 01:27 | Emergency (ER) | payer OTHER ==
[~2021-06-07] VITALS: Ht 165.1 cm; Wt 86.2 kg
[2021-06-07 01:30] VITALS: BP 122/83
--- NOTE | 2021-06-07 01:33 | NUR ---
TO LOBBY A/W BED AMBULATORY
--- NOTE | 2021-06-07 02:15 | NUR ---
PATIENT CALLED TO BED , NO RESPONSE PATIENT LEFT WITHOUT BEING SEEN BY DR. GARCIA. NO FURTHER CARE PROVIDED FOR PATIENT.
--- NOTE | 2021-06-07 02:25 | NUR ---
CALLED FOR THE SECOND TIME, NO RESPONSE
--- NOTE | 2021-06-07 02:35 | NUR ---
CALLED FOR THE THIRD TIME , NO RESPONSE
== END 2021-06-07 02:15 | disposition left against medical advice (07) ==
LOC: MED 01:27
DX: S09.90XA Unspecified injury of head, initial encounter (principal); F12.90 Cannabis use, unspecified, uncomplicated; Y04.2XXA Assault by strike against or bumped into by another person, initial encounter; Y93.89 Activity, other specified; Y92.89 Other specified places as the place of occurrence of the external cause; Y99.8 Other external cause status
CPT/HCPCS: 99281

== ENCOUNTER 2021-06-07 21:57 | Emergency (ER) | payer OTHER ==
[~2021-06-07] VITALS: Ht 172.7 cm; Wt 113.4 kg
[2021-06-07 22:00] VITALS: BP 126/77
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
[2021-06-07] MEDS ORDERED: NACL 0.9% 1,000 ML IV ONE (22:05)
[2021-06-07] MEDS ORDERED: HALOPERIDOL IM 5 MG/ML VIAL IVP ONE (22:25)
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
[2021-06-07 22:48] LABS: BASOPHILS % (AUTO) 0.4 % (0.0-2.0); EOSINOPHILS # (AUTO) 0.1 K/uL (0-0.4); EOSINOPHILS % (AUTO) 1.8 % (0.0-4.0); HEMATOCRIT 38.5 % (36-52); HEMOGLOBIN 13.4 g/dL (12.0-18.0); LYMPHOCYTES # (AUTO) 2.3 K/uL (2.0-11.5); LYMPHOCYTES % (AUTO) 28.5 % (20.5-51.1); MEAN CORPUSCULAR HEMOGLOBIN 35 pg (27-31); MEAN CORPUSCULAR HGB CONC 35 g/dL (33-37); MEAN CORPUSCULAR VOLUME 99.7 fL (80-94); MONOCYTES # (AUTO) 0.5 K/uL (0.8-1.0); MONOCYTES % (AUTO) 6.7 % (1.7-9.3); NEUTROPHILS % (AUTO) 62.6 % (42.2-75.2); PLATELET COUNT (AUTO) 118 K/uL (140-450); RED BLOOD CELL COUNT(AUTO) 3.86 MIL/uL (4.20-6.10); RED CELL DISTRIBUTION WIDTH 13.9 % (11.6-13.7); WHITE BLOOD COUNT (AUTO) 7.9 K/uL (4.8-10.8)
[2021-06-07 22:54] LABS: ALBUMIN 3.4 g/dL (3.4-5.0); ANION GAP 14.9 (8-16); ASPARTATE AMINOTRANSFERASE 76 U/L (15-37); CARBON DIOXIDE 22.9 mmol/L (21-32); CHLORIDE 101 mmol/L (98-107); CREATININE 0.9 mg/dL (0.6-1.3); GFR ARICAN-AMERICAN 113 mL/min (>90); GLUCOSE 387 mg/dL (74-106); POTASSIUM 3.8 mmol/L (3.5-5.1); SODIUM SERUM 135 mmol/L (136-145); TOTAL BILIRUBIN 0.8 mg/dL (0.0-1.0)
[2021-06-07 23:04] LABS: UREA NITROGEN, BLOOD 8 mg/dL (7-18)
[2021-06-07 23:07] LABS: ACETAMINOPHEN < 0.5 ug/ml (10-30); SALICYLATE < 2.8 mg/dL (2.8-20.0)
[2021-06-07 23:10] LABS: BARBITURATE, URINE NEGATIVE ng/ml (NEG <=200); BENZODIAZEPINE, URINE NEGATIVE ng/mL (NEG <=200); CANNABINOID, URINE POSITIVE ng/mL (NEG <=50); COCAINE, URINE NEGATIVE ng/mL (NEG <=300); OPIATE, URINE NEGATIVE ng/mL (NEG <=2000); PHENCYCLIDINE SCREEN,URINE NEGATIVE ng/mL (NEG <=25)
--- NOTE | 2021-06-08 01:30 | NUR ---
PT. LAYING ON HIS LEFT SIDE RESTING WITH EYES CLOSED, NO DISTRESS NOTED.
--- NOTE | 2021-06-08 01:45 | NUR ---
COVERING FOR PRIMARY DURING LUNCH. PT RESTING IN BED WITH EYES CLOSED. VSS. RESPIRATIONS EVEN AND UNLABORED. NO SIGNS OF DISTRESS.
--- NOTE | 2021-06-08 03:50 | NUR ---
PT. IN POSITION RESTING WITH EYES CLOSED. AUDIBLE SNORING SOUNDS CAN BE HEARD. WILL CONTINUE TO MONITOR
[2021-06-08 05:41] VITALS: BP 119/74
--- NOTE | 2021-06-08 05:41 | NUR ---
Patient presented to facility under the influence of Alcohol. Patient is currently ambulatory with steady gait, able to walk unassisted. Positive gag reflex. Alert and oriented. Is not driving self for discharge out of facility. Called father (Sarwat @ [phone]) and confirmed ride flower picker. ID band removed.
== END 2021-06-08 05:41 | disposition home or self-care (01) ==
LOC: MED 21:57
DX: S00.31XA Abrasion of nose, initial encounter (principal); S00.81XA Abrasion of other part of head, initial encounter; F10.129 Alcohol abuse with intoxication, unspecified; F12.90 Cannabis use, unspecified, uncomplicated; Y09 Assault by unspecified means; Y93.89 Activity, other specified; Y92.89 Other specified places as the place of occurrence of the external cause; Y99.8 Other external cause status
CPT/HCPCS: 36415; 70450; 70486; 80053; 80305; 85025; 96361; 96374; 99285; G0480; J1630; J7030

== ENCOUNTER 2021-07-16 07:43 | Emergency (ER) | payer OTHER ==
[~2021-07-16] VITALS: Ht 170.2 cm; Wt 112.9 kg
[2021-07-16] MEDS ORDERED: DOPPLER MC ONE (07:47)
[2021-07-16] MEDS ORDERED: INTUBATION KIT MC ONE (07:49)
--- NOTE | 2021-07-16 08:17 | NUR ---
CALLED FAMILY COURT COUNSELLOR, S/W KIMBERLEY. REPORTED, AWAITING CALL BACK.
--- NOTE | 2021-07-16 08:20 | NUR ---
CALLED [facility], S/Lore GODWIN. WILL CALL BACK WITHIN THE HOUR. REFERRAL #[id number]
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
--- NOTE | 2021-07-16 09:25 | NUR ---
([id number]) CARDIOPULMONARY ARREST JOAO GOFF AND JOAO GONZALEZ ATTENDING
--- NOTE | 2021-07-16 09:46 | NUR ---
RECEIVED CALL FROM SANDRA FROM [facility]ICE. WILL ATTEMPT TO SPEAK WITH FAMILY AND CALL BACK.
--- NOTE | 2021-07-16 09:51 | NUR ---
RECEIVED CALL BACK FROM SANDRA, REQUESTING WE CALL HER BACK WHEN FAMILY IS PRESENT. CASE #[id number]
--- NOTE | 2021-07-16 10:30 | NUR ---
Frederic from [facility] office stating transportation will be arranged to order picker/assembler body. ETA 1-2 hours
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
--- NOTE | 2021-07-16 12:55 | NUR ---
OIL TESTER BEDSIDE TO PICKUP BODY.
== END 2021-07-16 08:10 ==
LOC: MED 07:43
DX: I46.9 Cardiac arrest, cause unspecified (principal); R17 Unspecified jaundice; F17.200 Nicotine dependence, unspecified, uncomplicated; Z79.899 Other long term (current) drug therapy
CPT/HCPCS: 31500; 92950; 99291